=== PATIENT | female | born 1960 | race Caucasian/White ===

== ENCOUNTER 2023-03-04 12:46 | Inpatient (IN) | payer OTHER ==
[~2023-03-04] VITALS: Ht 157.5 cm; Wt 68.9 kg
[2023-03-04] MEDS ORDERED: SODIUM CHLORIDE 0.9% 1000ML 1,000 ML IV SCH (13:15)
[2023-03-04 13:49] LABS: BASOPHILS % 0.2 % (0.0-1.0); EOSINOPHILS # (AUTO) 0.1 (0.0-0.4); EOSINOPHILS % 1.8 % (0.0-6.0); HEMATOCRIT 32.8 % (34.2-44.1); LYMPHOCYTES # (AUTO) 0.7 (1.0-3.2); LYMPHOCYTES % 12.8 % (18.0-39.1); MEAN CORPUSCULAR HEMOGLOBIN 27.7 pg (28-32); MEAN CORPUSCULAR HGB CONC 33.5 g/dL (31-35); MEAN CORPUSCULAR VOLUME 82.6 fL (81-99); MONOCYTES # (AUTO) 0.2 (0.2-0.8); MONOCYTES % 3.8 % (4.4-11.3); NEUTROPHILS # (AUTO) 4.5 (2.1-6.9); NEUTROPHILS % 80.9 % (38.7-80.0); PLATELET COUNT 359 x10e3/uL (140-360); RED BLOOD COUNT 3.97 x10e6/uL (3.6-5.1); RED CELL DISTRIBUTION WIDTH 14.1 % (11.7-14.4)
[2023-03-04 14:06] LABS: ALANINE AMINOTRANSFERASE 10 IU/L (0-55); ALBUMIN 2.3 g/dL (3.5-5.0); ALBUMIN/GLOBULIN RATIO 0.5 (0.8-2.0); ALKALINE PHOSPHATASE 55 IU/L (40-150); ANION GAP 16.9 mmol/L (8-16); BLOOD UREA NITROGEN 25 mg/dL (7-26); BUN/CREATININE RATIO 35 (6-25); CALCIUM 9.2 mg/dL (8.4-10.2); CARBON DIOXIDE 28 mmol/L (22-29); CHLORIDE 94 mmol/L (98-107); CREATINE KINASE 36 IU/L (29-168); CREATININE, SERUM 0.72 mg/dL (0.57-1.11); GLUCOSE 213 mg/dL (74-118); LIPASE 67 U/L (8-78); SODIUM 136 mmol/L (136-145)
[2023-03-04 14:08] LABS: POTASSIUM 2.9 mmol/L (3.5-5.1)
[2023-03-04 14:15] LABS: B-TYPE NATRIURETIC PEPTIDE2 246.4 pg/mL (0-100)
[2023-03-04] MEDS ORDERED: IOPAMIDOL 610MG/1ML 300 MG/ML VIAL IV ONE (14:21)
[2023-03-04] MEDS ORDERED: POTASSIUM CHLORIDE 20MEQ/100ML 100 ML IV ONE (14:30)
[2023-03-04] MEDS ORDERED: CHLORTHALIDONE25 MG (16:28)
[2023-03-04] MEDS ORDERED: LISINOPRIL40 MG (16:28)
[2023-03-04] MEDS ORDERED: ATORVASTATIN CA20 MG (16:28)
[2023-03-04] MEDS ORDERED: METFORMIN HCL1000 MG (16:28)
[2023-03-04] MEDS ORDERED: GLIMEPIRIDE4 MG (16:28)
[2023-03-04] MEDS ORDERED: POTASSIUM CHLORIDE 20 MEQ TAB CR PO STA (16:28)
[2023-03-04] MEDS ORDERED: JANUVIA50 MG (16:28)
[2023-03-04] MEDS ORDERED: PROMETHAZINE HC25 M1 (16:28)
[2023-03-04] MEDS ORDERED: CARAFATE1 GM/10 ML (16:28)
[2023-03-04] MEDS: SODIUM CHLORIDE 0.9% 1000ML 1,000 ML IV SCH ×2 (16:30→22:43)
[2023-03-04 16:54] VITALS: PULSE 91; RESP 25; O2SAT 96
[2023-03-04] MEDS ORDERED: DEXTROSE 50% SYRINGE 50 ML IV PRN (18:30)
[2023-03-04 20:32] VITALS: PULSE 91; RESP 17; O2SAT 98
[2023-03-04] MEDS: INSULIN GLARGINE 100 UNITS/ML VIAL SQ SCH (21:00)
[2023-03-04] MEDS ORDERED: INSULIN LISPRO 100 UNIT/1 ML 3ML VIAL SQ SCH (21:00)
[2023-03-04] MEDS: INSULIN LISPRO 100 UNIT/1 ML 3ML VIAL SQ SCH (21:00)
[2023-03-04 22:10] VITALS: BP 121/70; PULSE 95; RESP 19; TEMP 98.4; O2SAT 98
[2023-03-04 22:31] VITALS: BP 121/70; PULSE 95; RESP 19; TEMP 98.4; O2SAT 98
[2023-03-05] VITALS (8 sets, daily range): BP systolic 114–133; BP diastolic 69–79; PULSE 85–105; RESP 15–22; TEMP 97.5–99.4; O2SAT 94–97
[2023-03-05] MEDS ORDERED: METOCLOPRAMIDE HCL 10 MG/2ML VIAL IV STA (00:24)
[2023-03-05 00:25] LABS: CREATINE KINASE MB 0.5 ng/mL (0-5.0)
[2023-03-05] MEDS: Morphine 2mg Syringe 2 MG/ML SYR IV PRN ×3 (00:50→21:53)
[2023-03-05 01:05] LABS: % IRON SATURATION 22 % (15-50); IRON 27 ug/dL (50-170); TOTAL IRON BINDING CAPACITY 125 ug/dL (261-478); TRANSFERRIN 89 mg/dL (180-382)
[2023-03-05] MEDS: METOCLOPRAMIDE HCL 10 MG/2ML VIAL IV SCH ×4 (05:30→23:26)
[2023-03-05 06:37] LABS: BASOPHILS % 0.4 % (0.0-1.0); EOSINOPHILS # (AUTO) 0.1 (0.0-0.4); EOSINOPHILS % 1.6 % (0.0-6.0); HEMATOCRIT 31.1 % (34.2-44.1); HEMOGLOBIN 9.9 g/dL (12.0-16.0); LYMPHOCYTES # (AUTO) 0.9 (1.0-3.2); LYMPHOCYTES % 16.2 % (18.0-39.1); MEAN CORPUSCULAR HEMOGLOBIN 27.7 pg (28-32); MEAN CORPUSCULAR HGB CONC 31.8 g/dL (31-35); MEAN CORPUSCULAR VOLUME 86.9 fL (81-99); MONOCYTES # (AUTO) 0.2 (0.2-0.8); NEUTROPHILS # (AUTO) 4.3 (2.1-6.9); NEUTROPHILS % 77.1 % (38.7-80.0); PLATELET COUNT 320 x10e3/uL (140-360); RED BLOOD COUNT 3.58 x10e6/uL (3.6-5.1); RED CELL DISTRIBUTION WIDTH 14.3 % (11.7-14.4)
[2023-03-05 07:10] LABS: ALBUMIN 1.9 g/dL (3.5-5.0); ALBUMIN/GLOBULIN RATIO 0.5 (0.8-2.0); ANION GAP 13.9 mmol/L (8-16); CALCIUM 8.1 mg/dL (8.4-10.2); CREATININE, SERUM 0.61 mg/dL (0.57-1.11)
[2023-03-05 07:14] LABS: POTASSIUM 2.9 mmol/L (3.5-5.1)
[2023-03-05] MEDS: INSULIN LISPRO 100 UNIT/1 ML 3ML VIAL SQ SCH ×4 (07:30→20:45)
[2023-03-05 08:03] LABS: CHOL/HDL RATIO 6.2 (3.0-3.6)
[2023-03-05 08:06] LABS: CREATINE KINASE MB 0.4 ng/mL (0-5.0)
[2023-03-05] MEDS ORDERED: POTASSIUM CHLORIDE 10MEQ EA PO ONE (09:00)
[2023-03-05] MEDS: POTASSIUM CHLORIDE 20MEQ/100ML 100 ML IV SCH ×2 (09:10→14:32)
[2023-03-05] MEDS: ATORVASTATIN 20 MG TAB PO SCH (09:11)
[2023-03-05] MEDS: SUCRALFATE 1 GM/10 ML SUSP PO SCH ×2 (09:11→16:35)
[2023-03-05] MEDS: SODIUM CHLORIDE 0.9% 1000ML 1,000 ML IV SCH ×4 (09:11→23:56)
[2023-03-05 15:51] LABS: CREATINE KINASE MB 0.3 ng/mL (0-5.0)
[2023-03-05] MEDS: INSULIN GLARGINE 100 UNITS/ML VIAL SQ SCH (20:44)
[2023-03-05] MEDS ORDERED: CYANOCOBALAMIN INJ 1,000 MCG/ML VIAL IM ONE (22:00)
[2023-03-05] MEDS ORDERED: METRONIDAZOLE 750MG/NS 150ML 150 ML IV STA (22:12)
[2023-03-06] VITALS (9 sets, daily range): BP systolic 121–138; BP diastolic 64–79; PULSE 96–103; RESP 18–20; TEMP 97.3–100.8; O2SAT 93–100
[2023-03-06] MEDS: METRONIDAZOLE 500MG/NS 100ML 100 ML IV SCH ×3 (06:25→18:31)
[2023-03-06] MEDS: METOCLOPRAMIDE HCL 10 MG/2ML VIAL IV SCH ×3 (06:25→18:31)
[2023-03-06] MEDS: INSULIN LISPRO 100 UNIT/1 ML 3ML VIAL SQ SCH ×4 (07:30→20:44)
[2023-03-06] MEDS: SUCRALFATE 1 GM/10 ML SUSP PO SCH ×2 (07:30→18:31)
[2023-03-06] MEDS: ATORVASTATIN 20 MG TAB PO SCH (09:00)
[2023-03-06] MEDS: SODIUM CHLORIDE 0.9% 1000ML 1,000 ML IV SCH ×2 (10:28→18:31)
[2023-03-06] MEDS: CYANOCOBALAMIN INJ 1,000 MCG/ML VIAL IM SCH (10:29)
[2023-03-06] MEDS: IRON SUCROSE 100 MG in SODIUM CHLORIDE 0.9% 100 ML IV SCH (10:33)
[2023-03-06] MEDS: Morphine 2mg Syringe 2 MG/ML SYR IV PRN (19:31)
[2023-03-06] MEDS: INSULIN GLARGINE 100 UNITS/ML VIAL SQ SCH (20:44)
[2023-03-07] VITALS (8 sets, daily range): BP systolic 117–140; BP diastolic 70–81; PULSE 70–112; RESP 18–20; TEMP 98–100.7; O2SAT 93–100
[2023-03-07] MEDS: METRONIDAZOLE 500MG/NS 100ML 100 ML IV SCH ×5 (00:08→23:24)
[2023-03-07] MEDS: SODIUM CHLORIDE 0.9% 1000ML 1,000 ML IV SCH ×2 (00:09→09:01)
[2023-03-07] MEDS: METOCLOPRAMIDE HCL 10 MG/2ML VIAL IV SCH ×5 (00:09→23:24)
[2023-03-07 06:13] LABS: BASOPHILS % 0.2 % (0.0-1.0); EOSINOPHILS % 0.4 % (0.0-6.0); HEMOGLOBIN 9.4 g/dL (12.0-16.0); LYMPHOCYTES # (AUTO) 0.9 (1.0-3.2); LYMPHOCYTES % 11.3 % (18.0-39.1); MEAN CORPUSCULAR HEMOGLOBIN 27.6 pg (28-32); MEAN CORPUSCULAR HGB CONC 32.4 g/dL (31-35); MONOCYTES # (AUTO) 0.3 (0.2-0.8); NEUTROPHILS % 83.1 % (38.7-80.0); PLATELET COUNT 324 x10e3/uL (140-360); RED BLOOD COUNT 3.41 x10e6/uL (3.6-5.1); RED CELL DISTRIBUTION WIDTH 14.8 % (11.7-14.4)
[2023-03-07 06:46] LABS: ALBUMIN 1.8 g/dL (3.5-5.0); ALBUMIN/GLOBULIN RATIO 0.4 (0.8-2.0); ANION GAP 17.6 mmol/L (8-16); CALCIUM 7.3 mg/dL (8.4-10.2); CREATININE, SERUM 0.55 mg/dL (0.57-1.11)
[2023-03-07 07:01] LABS: POTASSIUM 2.6 mmol/L (3.5-5.1)
[2023-03-07 07:15] LABS: LIPASE 26 U/L (8-78)
[2023-03-07] MEDS ORDERED: POTASSIUM CHLORIDE 20 MEQ TAB CR PO STA (07:28)
[2023-03-07] MEDS ORDERED: MAGNESIUM SULFATE 2GM/50ML 50 ML IV STA (07:28)
[2023-03-07] MEDS: INSULIN LISPRO 100 UNIT/1 ML 3ML VIAL SQ SCH ×4 (07:30→20:11)
[2023-03-07] MEDS: CYANOCOBALAMIN INJ 1,000 MCG/ML VIAL IM SCH (09:00)
[2023-03-07] MEDS: SUCRALFATE 1 GM/10 ML SUSP PO SCH ×2 (09:00→16:31)
[2023-03-07] MEDS: ATORVASTATIN 20 MG TAB PO SCH (09:01)
[2023-03-07] MEDS: IRON SUCROSE 100 MG in SODIUM CHLORIDE 0.9% 100 ML IV SCH (09:02)
[2023-03-07] MEDS ORDERED: MAGNESIUM SULFATE 2GM/50ML 50 ML IV ONE (11:30)
[2023-03-07] MEDS ORDERED: POTASSIUM CHLORIDE 20 MEQ TAB CR PO ONE ×3 (11:30→20:00)
[2023-03-07 11:53] LABS: AMYLASE 25 U/L (25-125)
[2023-03-07 15:07] LABS: ANION GAP 19.8 mmol/L (8-16); CALCIUM 7.5 mg/dL (8.4-10.2); CREATININE, SERUM 0.57 mg/dL (0.57-1.11)
[2023-03-07 15:12] LABS: POTASSIUM 2.8 mmol/L (3.5-5.1)
[2023-03-07] MEDS ORDERED: FUROSEMIDE INJ 10 MG/ML 2 ML VIAL IV ONE (16:15)
[2023-03-07] MEDS ORDERED: ONDANSETRON HCL INJ 2MG/ML 2ML 2 MG/ML VIAL IV PRN (17:15)
[2023-03-07] MEDS ORDERED: IOPAMIDOL 370 MG/ML 100 ML INFUS..BTL INJ ONE (17:16)
[2023-03-07] MEDS: INSULIN GLARGINE 100 UNITS/ML VIAL SQ SCH (20:13)
[2023-03-08] VITALS (9 sets, daily range): BP systolic 118–133; BP diastolic 71–83; PULSE 88–109; RESP 17–21; TEMP 97–99; O2SAT 96–99
[2023-03-08] MEDS: METRONIDAZOLE 500MG/NS 100ML 100 ML IV SCH ×3 (04:25→17:47)
[2023-03-08] MEDS: METOCLOPRAMIDE HCL 10 MG/2ML VIAL IV SCH ×3 (04:25→17:47)
[2023-03-08 05:54] LABS: BASOPHILS % 0.4 % (0.0-1.0); EOSINOPHILS # (AUTO) 0.1 (0.0-0.4); EOSINOPHILS % 0.9 % (0.0-6.0); HEMATOCRIT 28.2 % (34.2-44.1); HEMOGLOBIN 9.2 g/dL (12.0-16.0); LYMPHOCYTES # (AUTO) 0.9 (1.0-3.2); LYMPHOCYTES % 10.7 % (18.0-39.1); MEAN CORPUSCULAR HEMOGLOBIN 27.1 pg (28-32); MEAN CORPUSCULAR HGB CONC 32.6 g/dL (31-35); MEAN CORPUSCULAR VOLUME 82.9 fL (81-99); MONOCYTES # (AUTO) 0.4 (0.2-0.8); MONOCYTES % 4.5 % (4.4-11.3); NEUTROPHILS % 82.7 % (38.7-80.0); PLATELET COUNT 351 x10e3/uL (140-360); RED CELL DISTRIBUTION WIDTH 14.9 % (11.7-14.4)
[2023-03-08 06:28] LABS: ANION GAP 15.4 mmol/L (8-16); CALCIUM 7.5 mg/dL (8.4-10.2); CREATININE, SERUM 0.52 mg/dL (0.57-1.11); MAGNESIUM 1.5 MG/DL (1.3-2.1); PHOSPHORUS 1.8 MG/DL (2.3-4.7); POTASSIUM 3.4 mmol/L (3.5-5.1)
[2023-03-08] MEDS: INSULIN LISPRO 100 UNIT/1 ML 3ML VIAL SQ SCH ×4 (07:30→20:59)
[2023-03-08] MEDS: SUCRALFATE 1 GM/10 ML SUSP PO SCH ×2 (09:00→16:34)
[2023-03-08] MEDS: ATORVASTATIN 20 MG TAB PO SCH (09:50)
[2023-03-08] MEDS: IRON SUCROSE 100 MG in SODIUM CHLORIDE 0.9% 100 ML IV SCH (09:52)
[2023-03-08] MEDS: CYANOCOBALAMIN INJ 1,000 MCG/ML VIAL IM SCH (09:52)
[2023-03-08] MEDS: INSULIN GLARGINE 100 UNITS/ML VIAL SQ SCH (21:00)
[2023-03-09] VITALS (8 sets, daily range): BP systolic 119–133; BP diastolic 64–74; PULSE 74–108; RESP 16–20; TEMP 97.5–98.7; O2SAT 95–100
[2023-03-09] MEDS: METOCLOPRAMIDE HCL 10 MG/2ML VIAL IV SCH ×4 (00:45→18:45)
[2023-03-09] MEDS: METRONIDAZOLE 500MG/NS 100ML 100 ML IV SCH ×4 (00:45→18:45)
[2023-03-09 05:52] LABS: BASOPHILS % 0.4 % (0.0-1.0); EOSINOPHILS # (AUTO) 0.1 (0.0-0.4); EOSINOPHILS % 1.8 % (0.0-6.0); HEMATOCRIT 26.8 % (34.2-44.1); HEMOGLOBIN 8.6 g/dL (12.0-16.0); LYMPHOCYTES % 14.1 % (18.0-39.1); MEAN CORPUSCULAR HGB CONC 32.1 g/dL (31-35); MEAN CORPUSCULAR VOLUME 84.3 fL (81-99); MONOCYTES # (AUTO) 0.3 (0.2-0.8); MONOCYTES % 4.1 % (4.4-11.3); NEUTROPHILS # (AUTO) 5.3 (2.1-6.9); NEUTROPHILS % 78.9 % (38.7-80.0); PLATELET COUNT 341 x10e3/uL (140-360); RED BLOOD COUNT 3.18 x10e6/uL (3.6-5.1); RED CELL DISTRIBUTION WIDTH 15.1 % (11.7-14.4)
[2023-03-09 06:26] LABS: ALBUMIN 1.6 g/dL (3.5-5.0); ALBUMIN/GLOBULIN RATIO 0.4 (0.8-2.0); CALCIUM 7.4 mg/dL (8.4-10.2); CREATININE, SERUM 0.5 mg/dL (0.57-1.11)
[2023-03-09] MEDS: INSULIN LISPRO 100 UNIT/1 ML 3ML VIAL SQ SCH ×4 (07:30→21:00)
[2023-03-09] MEDS: SUCRALFATE 1 GM/10 ML SUSP PO SCH ×2 (08:30→16:32)
[2023-03-09] MEDS ORDERED: MUPIROCIN 2% OINT 22 GM TUBE TOP SCH (09:00)
[2023-03-09] MEDS: CYANOCOBALAMIN INJ 1,000 MCG/ML VIAL IM SCH (09:38)
[2023-03-09] MEDS: ATORVASTATIN 20 MG TAB PO SCH (09:39)
[2023-03-09] MEDS: IRON SUCROSE 100 MG in SODIUM CHLORIDE 0.9% 100 ML IV SCH (09:39)
[2023-03-09] MEDS: MUPIROCIN 2% OINT 22 GM TUBE TOP SCH (13:24)
[2023-03-09] MEDS ORDERED: POTASSIUM CHLORIDE 20 MEQ TAB CR PO ONE (19:50)
[2023-03-09] MEDS: INSULIN GLARGINE 100 UNITS/ML VIAL SQ SCH (21:00)
[2023-03-10] VITALS (8 sets, daily range): BP systolic 117–132; BP diastolic 59–75; PULSE 98–103; RESP 16–20; TEMP 98–98.5; O2SAT 94–97
[2023-03-10] MEDS: METRONIDAZOLE 500MG/NS 100ML 100 ML IV SCH ×4 (00:11→18:27)
[2023-03-10] MEDS: METOCLOPRAMIDE HCL 10 MG/2ML VIAL IV SCH ×4 (00:11→18:27)
[2023-03-10 06:06] LABS: BASOPHILS % 0.3 % (0.0-1.0); EOSINOPHILS # (AUTO) 0.1 (0.0-0.4); EOSINOPHILS % 2.1 % (0.0-6.0); HEMATOCRIT 25.7 % (34.2-44.1); HEMOGLOBIN 8.4 g/dL (12.0-16.0); LYMPHOCYTES % 16.1 % (18.0-39.1); MEAN CORPUSCULAR HEMOGLOBIN 27.2 pg (28-32); MEAN CORPUSCULAR HGB CONC 32.7 g/dL (31-35); MEAN CORPUSCULAR VOLUME 83.2 fL (81-99); MONOCYTES # (AUTO) 0.2 (0.2-0.8); MONOCYTES % 3.6 % (4.4-11.3); NEUTROPHILS # (AUTO) 4.7 (2.1-6.9); NEUTROPHILS % 76.8 % (38.7-80.0); PLATELET COUNT 357 x10e3/uL (140-360); RED BLOOD COUNT 3.09 x10e6/uL (3.6-5.1); RED CELL DISTRIBUTION WIDTH 15.1 % (11.7-14.4)
[2023-03-10 06:53] LABS: ANION GAP 13.8 mmol/L (8-16); CALCIUM 7.1 mg/dL (8.4-10.2); CREATININE, SERUM 0.46 mg/dL (0.57-1.11)
[2023-03-10 07:09] LABS: POTASSIUM 2.8 mmol/L (3.5-5.1)
[2023-03-10] MEDS: INSULIN LISPRO 100 UNIT/1 ML 3ML VIAL SQ SCH ×4 (07:30→21:00)
[2023-03-10 08:04] LABS: BAND NEUTROPHILS % (MANUAL) 2 %; EOSINOPHILS % (MANUAL) 4 % (0-7); LYMPHOCYTES % (MANUAL) 13 % (19-48); MONOCYTES % (MANUAL) 2 % (3.4-9.0); NEUTROPHILS % (MANUAL) 79 % (40-74); PLATELET ESTIMATE ADEQUATE; PLATELET MORPHOLOGY COMMENT NORMAL; RBC MORPHOLOGY COMMENT NORMAL
[2023-03-10] MEDS ORDERED: POTASSIUM CHLORIDE 10MEQ/100ML 100 ML IV ONE ×2 (08:15→12:00)
[2023-03-10] MEDS ORDERED: POTASSIUM CHLORIDE 10MEQ/100ML 100 ML ONE (08:58)
[2023-03-10] MEDS: ATORVASTATIN 20 MG TAB PO SCH (09:42)
[2023-03-10] MEDS: CYANOCOBALAMIN INJ 1,000 MCG/ML VIAL IM SCH (09:43)
[2023-03-10] MEDS: IRON SUCROSE 100 MG in SODIUM CHLORIDE 0.9% 100 ML IV SCH (09:50)
[2023-03-10] MEDS: MAGNESIUM SULFATE 2GM/50ML 50 ML IV SCH ×2 (09:51→18:25)
[2023-03-10] MEDS: MUPIROCIN 2% OINT 22 GM TUBE TOP SCH (09:52)
[2023-03-10] MEDS: SUCRALFATE 1 GM/10 ML SUSP PO SCH ×2 (09:55→18:26)
[2023-03-10] MEDS: POTASSIUM CHLORIDE 20MEQ/100ML 100 ML IV SCH ×2 (09:56→13:18)
[2023-03-10] MEDS: INSULIN GLARGINE 100 UNITS/ML VIAL SQ SCH (21:00)
[2023-03-11] VITALS (7 sets, daily range): BP systolic 108–135; BP diastolic 68–79; PULSE 84–107; RESP 15–18; TEMP 98.2–99; O2SAT 95–97
[2023-03-11] MEDS: METOCLOPRAMIDE HCL 10 MG/2ML VIAL IV SCH ×3 (00:15→13:00)
[2023-03-11] MEDS: METRONIDAZOLE 500MG/NS 100ML 100 ML IV SCH ×3 (00:15→13:00)
[2023-03-11 07:21] LABS: ALANINE AMINOTRANSFERASE 6 IU/L (0-55); ALBUMIN 1.7 g/dL (3.5-5.0); ALBUMIN/GLOBULIN RATIO 0.5 (0.8-2.0); ALKALINE PHOSPHATASE 56 IU/L (40-150); ANION GAP 13.7 mmol/L (8-16); BLOOD UREA NITROGEN < 5 mg/dL (7-26); CARBON DIOXIDE 22 mmol/L (22-29); CHLORIDE 109 mmol/L (98-107); CREATININE, SERUM 0.46 mg/dL (0.57-1.11); GLUCOSE 99 mg/dL (74-118); MAGNESIUM 1.4 MG/DL (1.3-2.1); SODIUM 142 mmol/L (136-145)
[2023-03-11 07:27] LABS: BUN/CREATININE RATIO 11 (6-25)
[2023-03-11 07:28] LABS: CALCIUM 6.9 mg/dL (8.4-10.2); POTASSIUM 2.7 mmol/L (3.5-5.1)
[2023-03-11] MEDS: INSULIN LISPRO 100 UNIT/1 ML 3ML VIAL SQ SCH ×2 (07:30→11:30)
[2023-03-11] MEDS ORDERED: POTASSIUM CHLORIDE 20 MEQ TAB CR PO ONE (09:00)
[2023-03-11] MEDS: CYANOCOBALAMIN INJ 1,000 MCG/ML VIAL IM SCH (09:45)
[2023-03-11] MEDS: SUCRALFATE 1 GM/10 ML SUSP PO SCH (09:46)
[2023-03-11] MEDS: POTASSIUM CHLORIDE 20MEQ/100ML 100 ML IV SCH ×2 (09:46→12:58)
[2023-03-11] MEDS: ATORVASTATIN 20 MG TAB PO SCH (09:46)
[2023-03-11] MEDS: MUPIROCIN 2% OINT 22 GM TUBE TOP SCH (09:48)
[2023-03-11] MEDS ORDERED: ZYVOX600 MG PO (15:25)
[2023-03-11] MEDS ORDERED: POTASSIUM CHLO20 ME1 PO (15:26)
== END 2023-03-11 16:31 | disposition home or self-care (01) | DRG 392 ==
LOC: ER 12:52 → ERHOLD 16:32 → MED/SURG2 21:08 → OBSVTOIN 03-06 09:32
PROVIDERS: ADMIT Family Medicine; ATTEND Family Medicine
DX: A09 Infectious gastroenteritis and colitis, unspecified (principal); E44.0 Moderate protein-calorie malnutrition; I10 Essential (primary) hypertension; K21.9 Gastro-esophageal reflux disease without esophagitis; E83.42 Hypomagnesemia; L89.322 Pressure ulcer of left buttock, stage 2; Z68.27 Body mass index [BMI] 27.0-27.9, adult; E11.65 Type 2 diabetes mellitus with hyperglycemia; D50.8 Other iron deficiency anemias; E78.5 Hyperlipidemia, unspecified; R14.0 Abdominal distension (gaseous); R53.81 Other malaise
CPT/HCPCS: 0223U; 36415; 71045; 71046; 71260; 74177; 78226; 80048; 80053; 80061; 82150; 82550; 82553; 82607; 82746; 82948; 83036; 83540; 83605; 83630; 83690; 83735; 83880; 83993; 84100; 84466; 84484; 85025; 85045; 87040; 87045; 87071; 87177; 87186; 87205; 87324; 87449; 93005; 94799; 99252; 99284; A9537; G0378; J1756; J1815; J1940; J2270; J2765; J3420; J3475; J3480; J7030; J7050; Q9967

== ENCOUNTER 2023-03-18 11:53 | Inpatient (IN) | payer OTHER ==
[~2023-03-18] VITALS: Ht 157.5 cm; Wt 67.4 kg
[2023-03-18] VITALS (27 sets, daily range): BP systolic 77–111; BP diastolic 57–84
[~2023-03-18 11:53] MED LIST: ATORVASTATIN CA20 MG; CARAFATE1 GM/10 ML; CHLORTHALIDONE25 MG; GLIMEPIRIDE4 MG; JANUVIA50 MG; LISINOPRIL40 MG; METFORMIN HCL1000 MG; POTASSIUM CHLO20 ME1 PO; PROMETHAZINE HC25 M1; ZYVOX600 MG PO
[2023-03-18] MEDS ORDERED: SODIUM CHLORIDE 0.9% 1000ML 1,000 ML ONE (12:04)
[2023-03-18] MEDS ORDERED: DILTIAZEM HCL VIAL 5 ML ONE ×2 (12:08→12:26)
[2023-03-18] MEDS ORDERED: DILTIAZEM HCL 5 MG/ML 5 ML VIAL IV STA (12:21)
[2023-03-18 12:28] LABS: BASOPHILS % 0.4 % (0.0-1.0); EOSINOPHILS # (AUTO) 0.1 (0.0-0.4); EOSINOPHILS % 0.9 % (0.0-6.0); HEMOGLOBIN 10.7 g/dL (12.0-16.0); LYMPHOCYTES # (AUTO) 1.1 (1.0-3.2); LYMPHOCYTES % 15.6 % (18.0-39.1); MEAN CORPUSCULAR HEMOGLOBIN 27.2 pg (28-32); MEAN CORPUSCULAR HGB CONC 31.5 g/dL (31-35); MEAN CORPUSCULAR VOLUME 86.3 fL (81-99); MONOCYTES # (AUTO) 0.2 (0.2-0.8); MONOCYTES % 3.3 % (4.4-11.3); NEUTROPHILS # (AUTO) 5.5 (2.1-6.9); NEUTROPHILS % 79.1 % (38.7-80.0); PLATELET COUNT 354 x10e3/uL (140-360); RED BLOOD COUNT 3.94 x10e6/uL (3.6-5.1); RED CELL DISTRIBUTION WIDTH 15.5 % (11.7-14.4)
[2023-03-18] MEDS ORDERED: SODIUM CHLORIDE 0.9% 100 ML IV ONE (12:30)
[2023-03-18] MEDS ORDERED: DILTIAZEM HCL 5 MG/ML 5 ML VIAL IV ONE (12:30)
[2023-03-18] MEDS ORDERED: METOPROLOL TARTRATE INJ 1 MG/ML VIAL ONE (12:31)
[2023-03-18 12:39] LABS: ALBUMIN 2.2 g/dL (3.5-5.0); ALBUMIN/GLOBULIN RATIO 0.5 (0.8-2.0); ANION GAP 20.4 mmol/L (8-16); CALCIUM 8.7 mg/dL (8.4-10.2); CREATININE, SERUM 0.68 mg/dL (0.57-1.11); POTASSIUM 4.4 mmol/L (3.5-5.1)
[2023-03-18] MEDS ORDERED: SODIUM CHLORIDE 0.9% 1000ML 1,000 ML IV SCH (12:45)
[2023-03-18] MEDS: METOPROLOL TARTRATE INJ 1 MG/ML VIAL IV PRN ×2 (13:06→13:07)
[2023-03-18] MEDS: AMIODARONE 900MG 500 ML IV SCH ×3 (14:15→15:07)
[2023-03-18] MEDS ORDERED: DEXTROSE 50% SYRINGE 50 ML IV PRN (16:00)
[2023-03-18] MEDS ORDERED: MAGNESIUM SULFATE 2GM/50ML 50 ML IV ONE (17:00)
[2023-03-18] MEDS: INSULIN REGULAR, HUMAN 100 UNIT/1 ML SQ SCH ×2 (17:49→21:00)
[2023-03-18] MEDS: MAGNESIUM SULFATE 2GM/50ML 50 ML IV SCH ×4 (17:50→23:35)
[2023-03-18] MEDS: ENOXAPARIN INJ 80 MG/0.8 ML SYR SC SCH (19:16)
[2023-03-18] MEDS ORDERED: DIGOXIN INJ 0.25 MG/ML 2 ML AMP IV ONE (20:30)
[2023-03-18] MEDS ORDERED: VASOPRESSIN 60 UNIT in DEXTROSE 5% 50ML 50 ML IV SCH (20:30)
[2023-03-18] MEDS ORDERED: DIGOXIN INJ 0.25 MG/ML 2 ML AMP ONE (20:35)
[2023-03-18] MEDS ORDERED: ZOLPIDEM TARTRATE 5 MG TAB PO PRN (20:45)
[2023-03-18] MEDS ORDERED: ATORVASTATIN 20 MG TAB PO SCH (21:00)
[2023-03-18] MEDS ORDERED: SODIUM CHLORIDE 0.9% 250ML 250 ML ONE (21:05)
[2023-03-18] MEDS ORDERED: METOPROLOL TARTRATE INJ 1 MG/ML VIAL IV ONE (22:45)
[2023-03-18] MEDS ORDERED: SODIUM CHLORIDE 0.9% 1000ML 250 ML IV ONE (22:45)
[2023-03-18] MEDS ORDERED: SODIUM CHLORIDE 0.9% 1000ML 1,000 ML IV ONE (22:45)
[2023-03-19] VITALS (82 sets, daily range): BP systolic 89–135; BP diastolic 51–103
[2023-03-19] MEDS: ENOXAPARIN INJ 80 MG/0.8 ML SYR SC SCH ×2 (06:18→18:04)
[2023-03-19] MEDS: AMIODARONE 900MG 500 ML IV SCH (06:18)
[2023-03-19 06:56] LABS: BASOPHILS % 0.4 % (0.0-1.0); EOSINOPHILS # (AUTO) 0.1 (0.0-0.4); EOSINOPHILS % 1.8 % (0.0-6.0); HEMOGLOBIN 8.9 g/dL (12.0-16.0); LYMPHOCYTES # (AUTO) 1.1 (1.0-3.2); LYMPHOCYTES % 22.1 % (18.0-39.1); MEAN CORPUSCULAR HEMOGLOBIN 27.1 pg (28-32); MEAN CORPUSCULAR HGB CONC 31.8 g/dL (31-35); MEAN CORPUSCULAR VOLUME 85.4 fL (81-99); MONOCYTES # (AUTO) 0.2 (0.2-0.8); MONOCYTES % 3.9 % (4.4-11.3); NEUTROPHILS # (AUTO) 3.5 (2.1-6.9); PLATELET COUNT 284 x10e3/uL (140-360); RED BLOOD COUNT 3.28 x10e6/uL (3.6-5.1)
[2023-03-19 07:01] LABS: ANION GAP 13.4 mmol/L (8-16); CALCIUM 7.8 mg/dL (8.4-10.2); CREATININE, SERUM 0.48 mg/dL (0.57-1.11); POTASSIUM 3.4 mmol/L (3.5-5.1)
[2023-03-19] MEDS: INSULIN REGULAR, HUMAN 100 UNIT/1 ML SQ SCH ×4 (07:30→20:37)
[2023-03-19] MEDS: POTASSIUM CHLORIDE 20MEQ/100ML 100 ML IV SCH ×2 (08:16→10:33)
[2023-03-19] MEDS ORDERED: LINEZOLID 600 MG TAB PO SCH (09:00)
[2023-03-19] MEDS ORDERED: CALCIUM GLUC 1 G/50 ML NACL 50 ML IV ONE (09:30)
[2023-03-19] MEDS: AMIODARONE HCL 200 MG TAB PO SCH (16:14)
[2023-03-19] MEDS: ATORVASTATIN 40 MG TAB PO SCH (21:00)
[2023-03-20] VITALS (14 sets, daily range): BP systolic 114–137; BP diastolic 62–92
[2023-03-20] MEDS: ENOXAPARIN INJ 80 MG/0.8 ML SYR SC SCH ×2 (05:26→18:02)
[2023-03-20 06:39] LABS: BASOPHILS % 0.4 % (0.0-1.0); EOSINOPHILS # (AUTO) 0.1 (0.0-0.4); EOSINOPHILS % 1.3 % (0.0-6.0); HEMATOCRIT 25.9 % (34.2-44.1); HEMOGLOBIN 8.2 g/dL (12.0-16.0); LYMPHOCYTES # (AUTO) 1.1 (1.0-3.2); LYMPHOCYTES % 21.1 % (18.0-39.1); MEAN CORPUSCULAR HEMOGLOBIN 27.2 pg (28-32); MEAN CORPUSCULAR HGB CONC 31.7 g/dL (31-35); MONOCYTES # (AUTO) 0.3 (0.2-0.8); NEUTROPHILS # (AUTO) 3.8 (2.1-6.9); NEUTROPHILS % 71.8 % (38.7-80.0); PLATELET COUNT 215 x10e3/uL (140-360); RED BLOOD COUNT 3.01 x10e6/uL (3.6-5.1); RED CELL DISTRIBUTION WIDTH 14.6 % (11.7-14.4)
[2023-03-20 07:11] LABS: ALBUMIN/GLOBULIN RATIO 0.5 (0.8-2.0); ANION GAP 12.5 mmol/L (8-16); CALCIUM 8.1 mg/dL (8.4-10.2); CREATININE, SERUM 0.47 mg/dL (0.57-1.11); MAGNESIUM 1.4 MG/DL (1.3-2.1); POTASSIUM 3.5 mmol/L (3.5-5.1)
[2023-03-20] MEDS: INSULIN REGULAR, HUMAN 100 UNIT/1 ML SQ SCH ×4 (07:30→21:00)
[2023-03-20] MEDS: MUPIROCIN 2% OINT 22 GM TUBE TOP SCH (08:23)
[2023-03-20] MEDS: AMIODARONE HCL 200 MG TAB PO SCH ×2 (08:23→18:02)
[2023-03-20] MEDS: METRONIDAZOLE 500 MG TAB PO SCH ×2 (15:49→21:34)
[2023-03-20] MEDS: ATORVASTATIN 40 MG TAB PO SCH (21:34)
[2023-03-20 22:48] LABS: % IRON SATURATION 41 % (15-50); IRON 58 ug/dL (50-170); TOTAL IRON BINDING CAPACITY 140 ug/dL (261-478); TRANSFERRIN 100 mg/dL (180-382)
[2023-03-21] VITALS (8 sets, daily range): BP systolic 122–133; BP diastolic 71–78
[2023-03-21] MEDS: ENOXAPARIN INJ 80 MG/0.8 ML SYR SC SCH ×2 (05:19→17:08)
[2023-03-21] MEDS: METRONIDAZOLE 500 MG TAB PO SCH ×3 (05:19→20:56)
[2023-03-21 05:41] LABS: BASOPHILS % 0.5 % (0.0-1.0); EOSINOPHILS # (AUTO) 0.1 (0.0-0.4); EOSINOPHILS % 0.8 % (0.0-6.0); LYMPHOCYTES # (AUTO) 1.2 (1.0-3.2); LYMPHOCYTES % 19.4 % (18.0-39.1); MEAN CORPUSCULAR HGB CONC 30.8 g/dL (31-35); MEAN CORPUSCULAR VOLUME 87.6 fL (81-99); MONOCYTES # (AUTO) 0.4 (0.2-0.8); MONOCYTES % 5.5 % (4.4-11.3); NEUTROPHILS # (AUTO) 4.7 (2.1-6.9); NEUTROPHILS % 73.2 % (38.7-80.0); PLATELET COUNT 220 x10e3/uL (140-360); RED BLOOD COUNT 2.59 x10e6/uL (3.6-5.1)
[2023-03-21 05:55] LABS: HEMATOCRIT 22.7 % (34.2-44.1)
[2023-03-21 06:01] LABS: ALBUMIN 2.1 g/dL (3.5-5.0); ALBUMIN/GLOBULIN RATIO 0.6 (0.8-2.0); ANION GAP 11.1 mmol/L (8-16); CALCIUM 8.1 mg/dL (8.4-10.2); CREATININE, SERUM 0.47 mg/dL (0.57-1.11); POTASSIUM 3.1 mmol/L (3.5-5.1)
[2023-03-21 06:04] LABS: MAGNESIUM 1.1 MG/DL (1.3-2.1)
[2023-03-21] MEDS ORDERED: MAGNESIUM SULFATE 2GM/50ML 50 ML IV ONE ×2 (07:00→11:00)
[2023-03-21] MEDS: INSULIN REGULAR, HUMAN 100 UNIT/1 ML SQ SCH ×4 (07:30→20:57)
[2023-03-21] MEDS ORDERED: SODIUM CHLORIDE 0.9% 250ML 250 ML ONE (07:39)
[2023-03-21] MEDS: AMIODARONE HCL 200 MG TAB PO SCH ×2 (09:41→17:08)
[2023-03-21] MEDS: MUPIROCIN 2% OINT 22 GM TUBE TOP SCH (09:42)
[2023-03-21] MEDS: IRON SUCROSE 100 MG in SODIUM CHLORIDE 0.9% 100 ML IV SCH (09:42)
[2023-03-21] MEDS: ATORVASTATIN 40 MG TAB PO SCH (20:56)
[2023-03-22] VITALS (7 sets, daily range): BP systolic 117–141; BP diastolic 65–95
[2023-03-22] MEDS: METRONIDAZOLE 500 MG TAB PO SCH ×3 (05:22→21:44)
[2023-03-22] MEDS: INSULIN REGULAR, HUMAN 100 UNIT/1 ML SQ SCH ×4 (07:30→21:00)
[2023-03-22] MEDS: ONDANSETRON HCL INJ 2MG/ML 2ML 2 MG/ML VIAL IV PRN (08:10)
[2023-03-22] MEDS: MUPIROCIN 2% OINT 22 GM TUBE TOP SCH (09:00)
[2023-03-22] MEDS: AMIODARONE HCL 200 MG TAB PO SCH ×2 (09:19→17:03)
[2023-03-22] MEDS: IRON SUCROSE 100 MG in SODIUM CHLORIDE 0.9% 100 ML IV SCH (09:19)
[2023-03-22 09:34] LABS: BASOPHILS % 0.5 % (0.0-1.0); EOSINOPHILS # (AUTO) 0.1 (0.0-0.4); EOSINOPHILS % 1.2 % (0.0-6.0); HEMATOCRIT 26.4 % (34.2-44.1); HEMOGLOBIN 8.5 g/dL (12.0-16.0); LYMPHOCYTES # (AUTO) 0.9 (1.0-3.2); LYMPHOCYTES % 15.7 % (18.0-39.1); MEAN CORPUSCULAR HEMOGLOBIN 27.3 pg (28-32); MEAN CORPUSCULAR HGB CONC 32.2 g/dL (31-35); MEAN CORPUSCULAR VOLUME 84.9 fL (81-99); MONOCYTES # (AUTO) 0.3 (0.2-0.8); NEUTROPHILS # (AUTO) 4.4 (2.1-6.9); NEUTROPHILS % 75.5 % (38.7-80.0); PLATELET COUNT 193 x10e3/uL (140-360); RED BLOOD COUNT 3.11 x10e6/uL (3.6-5.1); RED CELL DISTRIBUTION WIDTH 14.1 % (11.7-14.4)
[2023-03-22 11:07] LABS: CLARITY,URINE CLEAR (CLEAR); COLOR,URINE YELLOW (YELLOW); KETONES,URINE 1+ (NEGATIVE); LEUKOCYTE ESTERASE ,URINE TRACE (NEGATIVE); NITRITE,URINE NEGATIVE (NEGATIVE); PROTEIN,URINE DIPSTICK 1+ (NEGATIVE); URINE UROBILINOGEN 0.2 mg/dL (0.2 - 1)
[2023-03-22 11:19] LABS: BACTERIA,URINE FEW /HPF; EPITHELIAL CELLS,URINE RARE /LPF; RBC,URINE 0-5 /HPF (0-5); TRANSITIONAL EPI CELLS,URINE FEW; WBC,URINE (MAN) 0-5 /HPF (0-5)
[2023-03-22] MEDS ORDERED: PROPOFOL IV EMULSION 10 MG/ML 20 ML VIAL ONE (11:25)
[2023-03-22] MEDS ORDERED: LIDOCAINE HCL 2% LOCAL INJ 5 ML SDV VIAL INJ ONE (11:25)
[2023-03-22] MEDS ORDERED: FENTANYL CITRATE/PF 100MCG/2 ML INJ ONE (12:13)
[2023-03-22] MEDS ORDERED: MAGNESIUM SULFATE 2GM/50ML 50 ML IV ONE ×2 (14:15→17:00)
[2023-03-22] MEDS: ATORVASTATIN 40 MG TAB PO SCH (21:44)
[2023-03-23 00:10] VITALS: BP 123/69
[2023-03-23 04:40] VITALS: BP 122/70
[2023-03-23] MEDS: METRONIDAZOLE 500 MG TAB PO SCH ×2 (05:34→13:37)
[2023-03-23 06:27] LABS: ALBUMIN 2.1 g/dL (3.5-5.0); ALBUMIN/GLOBULIN RATIO 0.6 (0.8-2.0); ANION GAP 11.1 mmol/L (8-16); CALCIUM 7.9 mg/dL (8.4-10.2); CREATININE, SERUM 0.47 mg/dL (0.57-1.11); MAGNESIUM 1.8 MG/DL (1.3-2.1); POTASSIUM 3.1 mmol/L (3.5-5.1)
[2023-03-23] MEDS: INSULIN REGULAR, HUMAN 100 UNIT/1 ML SQ SCH ×3 (07:30→16:30)
[2023-03-23 07:39] VITALS: BP 125/74
[2023-03-23 08:27] VITALS: BP 125/74
[2023-03-23] MEDS: AMIODARONE HCL 200 MG TAB PO SCH ×2 (09:18→16:32)
[2023-03-23] MEDS: IRON SUCROSE 100 MG in SODIUM CHLORIDE 0.9% 100 ML IV SCH (09:19)
[2023-03-23] MEDS: MUPIROCIN 2% OINT 22 GM TUBE TOP SCH (09:19)
[2023-03-23 12:18] VITALS: BP 120/71
[2023-03-23] MEDS: ONDANSETRON HCL INJ 2MG/ML 2ML 2 MG/ML VIAL IV PRN (13:37)
[2023-03-23 16:22] VITALS: BP 120/74
[2023-03-23] MEDS ORDERED: ELIQUIS5 MG PO (19:02)
[2023-03-23] MEDS ORDERED: MAGNESIUM OXID400 MG PO (19:03)
[2023-03-23] MEDS ORDERED: POTASSIUM CHLO20 ME1 PO (19:03)
[2023-03-23] MEDS ORDERED: AMIODARONE HCL200 MG PO (19:04)
[2023-03-23] MEDS ORDERED: FEROSUL325 MG PO (19:04)
[2023-03-23] MEDS ORDERED: FLAGYL375 MG PO (19:05)
[2023-03-23] MEDS ORDERED: POTASSIUM CHLORIDE 10MEQ EA PO ONE (19:15)
[2023-03-23] MEDS ORDERED: ONDANSETRON HCL 4 MG ORAL DISINTEGRATING TAB PO PRN (19:30)
== END 2023-03-23 20:10 | disposition home or self-care (01) | DRG 309 ==
LOC: ER 12:03 → ERHOLD 13:30 → ICU 15:32 → MED/SURG 03-20 10:02
PROVIDERS: ADMIT Family Medicine; ATTEND Family Medicine
PROC: 05HY33Z Insertion of Infusion Device into Upper Vein, Percutaneous Approach (ICD-10-PCS; 2023-03-18)
PROC: 0DB78ZX Excision of Stomach, Pylorus, Via Natural or Artificial Opening Endoscopic, Diagnostic (ICD-10-PCS; principal; 2023-03-22 15:36)
PROC: 0D758ZZ Dilation of Esophagus, Via Natural or Artificial Opening Endoscopic (ICD-10-PCS; 2023-03-22 15:36)
DX: I48.92 Unspecified atrial flutter (principal); E44.0 Moderate protein-calorie malnutrition; K22.2 Esophageal obstruction; K44.9 Diaphragmatic hernia without obstruction or gangrene; K29.70 Gastritis, unspecified, without bleeding; Z20.822 Contact with and (suspected) exposure to COVID-19; K20.90 Esophagitis, unspecified without bleeding; I48.0 Paroxysmal atrial fibrillation; Z79.01 Long term (current) use of anticoagulants; E83.42 Hypomagnesemia; E87.6 Hypokalemia; Z68.27 Body mass index [BMI] 27.0-27.9, adult
CPT/HCPCS: 36415; 36569; 43239; 43450; 71045; 80048; 80053; 81001; 82270; 82607; 82746; 82948; 83540; 83735; 83880; 84466; 84484; 85025; 85045; 87324; 87449; 88305; 88342; 93005; 93306; 94799; 96372; 99252; 99285; J1160; J1650; J1756; J2001; J2405; J3475; J3480; J7030; J7050

== ENCOUNTER → 2023-04-26 | Day surgery (SDC) | payer OTHER ==
[2023-04-21 07:57] LABS: BASOPHILS % 0.4 % (0.0-1.0); EOSINOPHILS # (AUTO) 0.1 (0.0-0.4); EOSINOPHILS % 1.9 % (0.0-6.0); HEMATOCRIT 34.1 % (34.2-44.1); HEMOGLOBIN 10.7 g/dL (12.0-16.0); LYMPHOCYTES # (AUTO) 1.6 (1.0-3.2); LYMPHOCYTES % 33.4 % (18.0-39.1); MEAN CORPUSCULAR HEMOGLOBIN 26.9 pg (28-32); MEAN CORPUSCULAR HGB CONC 31.4 g/dL (31-35); MEAN CORPUSCULAR VOLUME 85.7 fL (81-99); MONOCYTES # (AUTO) 0.2 (0.2-0.8); MONOCYTES % 4.4 % (4.4-11.3); NEUTROPHILS # (AUTO) 2.9 (2.1-6.9); NEUTROPHILS % 59.5 % (38.7-80.0); PLATELET COUNT 409 x10e3/uL (140-360); RED BLOOD COUNT 3.98 x10e6/uL (3.6-5.1)
[~2023-04-26] MED LIST changes: +AMIODARONE HCL200 MG PO; +ELIQUIS5 MG PO; +FENTANYL CITRATE/PF 100MCG/2 ML INJ ONE; +FEROSUL325 MG PO; +FERROUS SULFAT325 MG PO; +FLAGYL375 MG PO; +HYOSCYAMINE SULFATE 0.5 MG/ML INJ ONE; +LACTATED RINGER'S 1,000 ML ONE; +LIDOCAINE HCL 2% LOCAL INJ 5 ML SDV VIAL INJ ONE; -LISINOPRIL40 MG; +LISINOPRIL40 MG PO; +MAGNESIUM OXID400 MG PO; +METOPROLOL SUCC25 MG PO; +MIDAZOLAM HCL 2 MG/2 ML VIAL ONE; +PANTOPRAZOLE SO40 MG PO; +PROPOFOL IV EMULSION 10 MG/ML 20 ML VIAL ONE; +SIMETHICONE 40 MG/0.6 ML BTL ONE
[2023-04-26 13:15] VITALS: BP 133/78; PULSE 76; RESP 18; O2SAT 98
[2023-04-29 16:11] LABS: ENDOMYSIAL ANTIBODIES, IGA Negative (Negative)
== END | disposition home or self-care (01) ==
LOC: OR 08:36
PROVIDERS: ATTEND Internal Medicine Gastroenterology
DX: R13.19 Other dysphagia (principal); K63.5 Polyp of colon; K29.70 Gastritis, unspecified, without bleeding; K21.9 Gastro-esophageal reflux disease without esophagitis; K44.9 Diaphragmatic hernia without obstruction or gangrene; K64.8 Other hemorrhoids; Z71.3 Dietary counseling and surveillance; D64.89 Other specified anemias; R63.4 Abnormal weight loss; E11.9 Type 2 diabetes mellitus without complications; Z71.89 Other specified counseling; I48.91 Unspecified atrial fibrillation; M06.9 Rheumatoid arthritis, unspecified; I10 Essential (primary) hypertension; Z01.812 Encounter for preprocedural laboratory examination; Z79.02 Long term (current) use of antithrombotics/antiplatelets; Z79.899 Other long term (current) drug therapy; Z79.84 Long term (current) use of oral hypoglycemic drugs
CPT/HCPCS: 36415 ×2; 43235; 43450; 45380; 82784; 82948; 83516; 85025; 86256; C9113; J1980; J2001; J2250; J2704; J3010; J7121; 45378

== ENCOUNTER 2023-09-26 16:18 | Inpatient (IN) | payer OTHER ==
[~2023-09-26] VITALS: Ht 157.5 cm; Wt 61.0 kg
[~2023-09-26 16:18] MED LIST changes: -FENTANYL CITRATE/PF 100MCG/2 ML INJ ONE; -HYOSCYAMINE SULFATE 0.5 MG/ML INJ ONE; -LACTATED RINGER'S 1,000 ML ONE; -LIDOCAINE HCL 2% LOCAL INJ 5 ML SDV VIAL INJ ONE; -MIDAZOLAM HCL 2 MG/2 ML VIAL ONE; -PROPOFOL IV EMULSION 10 MG/ML 20 ML VIAL ONE; -SIMETHICONE 40 MG/0.6 ML BTL ONE
[2023-09-26] MEDS ORDERED: ONDANSETRON HCL INJ 2MG/ML 2ML 2 MG/ML VIAL IV STA (16:46)
[2023-09-26] MEDS ORDERED: SODIUM CHLORIDE 0.9% 1000ML 1,000 ML IV ONE (17:00)
[2023-09-26 17:03] LABS: BASOPHILS % 0.6 % (0.0-1.0); EOSINOPHILS % 0.3 % (0.0-6.0); HEMOGLOBIN 6.2 g/dL (12.0-16.0); MEAN CORPUSCULAR HGB CONC 31.6 g/dL (31-35); MONOCYTES # (AUTO) 0.4 (0.2-0.8); MONOCYTES % 5.2 % (4.4-11.3); NEUTROPHILS # (AUTO) 5.2 (2.1-6.9); NEUTROPHILS % 74.8 % (38.7-80.0); RED BLOOD COUNT 2.48 x10e6/uL (3.6-5.1); WHITE BLOOD COUNT 6.88 x10e3/uL (4.8-10.8)
[2023-09-26 17:11] LABS: HEMATOCRIT 19.6 % (34.2-44.1); PLATELET COUNT 11 x10e3/uL (140-360)
[2023-09-26] MEDS ORDERED: SODIUM CHLORIDE 0.9% 250ML 250 ML IV ONE (17:15)
[2023-09-26 17:28] LABS: ALBUMIN 2.8 g/dL (3.5-5.0); ALBUMIN/GLOBULIN RATIO 0.6 (0.8-2.0); BILIRUBIN,TOTAL 4.6 mg/dL (0.2-1.2); CALCIUM 9.2 mg/dL (8.4-10.2); CREATININE, SERUM 1.08 mg/dL (0.57-1.11); TOTAL PROTEIN 7.4 g/dL (6.5-8.1)
[2023-09-26] MEDS ORDERED: IOPAMIDOL 370 MG/ML 100 ML INFUS..BTL INJ ONE (17:39)
[2023-09-26] MEDS ORDERED: ONDANSETRON HCL INJ 2MG/ML 2ML 2 MG/ML VIAL IV PRN (18:15)
[2023-09-26] MEDS ORDERED: METOCLOPRAMIDE HCL 10 MG/2ML VIAL IV ONE (18:15)
[2023-09-26 18:24] LABS: CLARITY,URINE HAZY (CLEAR); COLOR,URINE AMBER (YELLOW); INR 1.25; LEUKOCYTE ESTERASE ,URINE NEGATIVE (NEGATIVE); NITRITE,URINE NEGATIVE (NEGATIVE); PH,URINE 5.5 (5 - 7); PROTEIN,URINE DIPSTICK >=300 (NEGATIVE)
[2023-09-26 18:25] LABS: BILIRUBIN,URINE SMALL (NEGATIVE); GLUCOSE, URINE 500 (NEGATIVE); KETONES,URINE 2+ (NEGATIVE); PARTIAL THROMBOPLASTIN TIME 36.2 seconds (23.8-35.5); URINE UROBILINOGEN 0.2 mg/dL (0.2 - 1)
[2023-09-26 18:30] LABS: AMORPHOUS SEDIMENT,URINE FEW (FEW); BACTERIA,URINE FEW /HPF; EPITHELIAL CELLS,URINE FEW /LPF; RBC,URINE 21-50 /HPF (0-5)
[2023-09-26 18:36] LABS: TROPONIN I 0.289 ng/mL (0-0.300)
[2023-09-26 18:39] LABS: ABG HCO3 20 mmol/L (22-26); ABG PCO2 31 mmHg (35-45); ABG PH 7.42 (7.35-7.45); ABG PO2 83 mmHg (80-105)
[2023-09-26 18:40] LABS: ABG TCO2 21
[2023-09-26] MEDS: SODIUM CHLORIDE 0.9% 1000ML 1,000 ML IV SCH (20:06)
[2023-09-26 21:33] VITALS: BP 120/73; PULSE 107; RESP 19; TEMP 98.7; O2SAT 98
[2023-09-26 21:35] VITALS: BP 120/73; PULSE 107; RESP 19; TEMP 98.7; O2SAT 98
[2023-09-26] MEDS ORDERED: METFORMIN HCL500 MG PO (21:42)
[2023-09-26] MEDS ORDERED: GLIMEPIRIDE4 MG PO (21:42)
[2023-09-26 21:43] VITALS: BP 120/73; PULSE 107; RESP 19; TEMP 98.7; O2SAT 98
[2023-09-26] MEDS ORDERED: SODIUM CHLORIDE 0.9% 250ML 250 ML ONE (21:52)
[2023-09-26 22:18] LABS: ANISOCYTOSIS SLIGHT; HYPOCHROMASIA SLIGHT; PLATELET ESTIMATE MARKEDLY DECREASED; PLATELET MORPHOLOGY COMMENT NORMAL; POLYCHROMASIA FEW; RBC MORPHOLOGY COMMENT NORMAL
[2023-09-27] VITALS (8 sets, daily range): BP systolic 136–156; BP diastolic 75–87; PULSE 95–100; RESP 16–18; TEMP 98–98.6; O2SAT 93–100
[2023-09-27] MEDS ORDERED: METOCLOPRAMIDE HCL 10 MG/2ML VIAL IV STA (01:05)
[2023-09-27] MEDS ORDERED: SODIUM CHLORIDE 0.9% 250ML 250 ML ONE ×2 (01:26→10:26)
[2023-09-27] MEDS: SODIUM CHLORIDE 0.9% 1000ML 1,000 ML IV SCH ×4 (02:15→20:50)
[2023-09-27 02:58] LABS: % IRON SATURATION 77 % (15-50); IRON 167 ug/dL (50-170); TOTAL IRON BINDING CAPACITY 218 ug/dL (261-478); TRANSFERRIN 156 mg/dL (180-382)
[2023-09-27 03:32] LABS: FOLATE 7.8 ng/mL (7.0-15.4)
[2023-09-27 03:33] LABS: FERRITIN > 2000.00 ng/mL (4.63-204.00)
[2023-09-27] MEDS: METOCLOPRAMIDE HCL 10 MG/2ML VIAL IV SCH ×3 (05:46→17:22)
[2023-09-27 09:11] LABS: BASOPHILS % 0.5 % (0.0-1.0); EOSINOPHILS % 0.2 % (0.0-6.0); LYMPHOCYTES # (AUTO) 1.3 (1.0-3.2); LYMPHOCYTES % 14.4 % (18.0-39.1); MEAN CORPUSCULAR HEMOGLOBIN 27.5 pg (28-32); MEAN CORPUSCULAR HGB CONC 33.5 g/dL (31-35); MONOCYTES # (AUTO) 0.5 (0.2-0.8); MONOCYTES % 5.5 % (4.4-11.3); NEUTROPHILS # (AUTO) 6.6 (2.1-6.9); NEUTROPHILS % 75.4 % (38.7-80.0); RED BLOOD COUNT 2.44 x10e6/uL (3.6-5.1); RED CELL DISTRIBUTION WIDTH 18.6 % (11.7-14.4)
[2023-09-27 09:30] LABS: ALBUMIN 2.5 g/dL (3.5-5.0); ALBUMIN/GLOBULIN RATIO 0.7 (0.8-2.0); ANION GAP 16.7 mmol/L (8-16); BILIRUBIN,TOTAL 2.6 mg/dL (0.2-1.2); CALCIUM 8.4 mg/dL (8.4-10.2); CREATININE, SERUM 0.99 mg/dL (0.57-1.11); POTASSIUM 3.7 mmol/L (3.5-5.1); TOTAL PROTEIN 6.3 g/dL (6.5-8.1)
[2023-09-27 09:31] LABS: HEMOGLOBIN 6.7 g/dL (12.0-16.0); PLATELET COUNT 10 x10e3/uL (140-360)
[2023-09-27 10:59] LABS: CHOL/HDL RATIO 4.9 (3.0-3.6)
[2023-09-27] MEDS ORDERED: HEPARIN SOD (PORCINE) 1000 UNIT/ML SDV ONE (13:47)
[2023-09-27] MEDS ORDERED: DEXTROSE 50% SYRINGE 50 ML IV PRN (14:30)
[2023-09-27] MEDS: INSULIN LISPRO 100 UNIT/1 ML 3ML VIAL SQ SCH ×2 (14:44→21:35)
[2023-09-27 15:19] LABS: FREE T4 (FREE THYROXINE) 1.17 ng/dL (0.8-1.8); THYROID STIMULATING HORMONE 1.54 uIU/mL (0.350-4.940)
[2023-09-27 17:51] LABS: HEMATOCRIT 25.1 % (34.2-44.1); HEMOGLOBIN 8.6 g/dL (12.0-16.0)
[2023-09-27] MEDS ORDERED: INSULIN GLARGINE 100 UNITS/ML VIAL SQ SCH (21:00)
[2023-09-27] MEDS ORDERED: CYANOCOBALAMIN INJ 1,000 MCG/ML VIAL IM ONE (22:30)
[2023-09-28] VITALS (12 sets, daily range): BP systolic 87–157; BP diastolic 56–93; PULSE 76–113; RESP 16–20; TEMP 98–100.3; O2SAT 94–100
[2023-09-28] MEDS: METOCLOPRAMIDE HCL 10 MG/2ML VIAL IV SCH ×4 (00:17→17:39)
[2023-09-28 05:30] LABS: BASOPHILS % 0.3 % (0.0-1.0); EOSINOPHILS % 0.1 % (0.0-6.0); LYMPHOCYTES # (AUTO) 1.3 (1.0-3.2); LYMPHOCYTES % 11.6 % (18.0-39.1); MEAN CORPUSCULAR HEMOGLOBIN 27.7 pg (28-32); MEAN CORPUSCULAR VOLUME 81.4 fL (81-99); MONOCYTES # (AUTO) 0.6 (0.2-0.8); NEUTROPHILS # (AUTO) 8.8 (2.1-6.9); NEUTROPHILS % 78.3 % (38.7-80.0); RED BLOOD COUNT 2.53 x10e6/uL (3.6-5.1); WHITE BLOOD COUNT 11.24 x10e3/uL (4.8-10.8)
[2023-09-28 06:19] LABS: HEMATOCRIT 20.6 % (34.2-44.1); PLATELET COUNT 8 x10e3/uL (140-360)
[2023-09-28 08:14] LABS: RBC MORPHOLOGY COMMENT ABNORMAL
[2023-09-28 08:15] LABS: ANISOCYTOSIS MODERATE
[2023-09-28 08:16] LABS: HYPOCHROMASIA MODERATE; SCHISTOCYTES MODERATE
[2023-09-28 08:17] LABS: PLATELET ESTIMATE MARKEDLY DECREASED; PLATELET MORPHOLOGY COMMENT NORMAL; POLYCHROMASIA FEW
[2023-09-28] MEDS: CYANOCOBALAMIN INJ 1,000 MCG/ML VIAL IM SCH (08:24)
[2023-09-28] MEDS: INSULIN LISPRO 100 UNIT/1 ML 3ML VIAL SQ SCH ×4 (08:26→21:09)
[2023-09-28] MEDS: SODIUM CHLORIDE 0.9% 1000ML 1,000 ML IV SCH ×3 (09:38→17:39)
[2023-09-28] MEDS ORDERED: SODIUM CHLORIDE 0.9% 250ML 250 ML ONE ×2 (11:42→13:39)
[2023-09-28] MEDS ORDERED: IMMU GLOBULIN,GAMMA (IGG) 200 ML IV SCH (12:00)
[2023-09-28] MEDS ORDERED: SODIUM CHLORIDE FLUSH 10 ML SYR ONE (12:19)
[2023-09-28] MEDS ORDERED: DEXTROSE 50% SYRINGE 50 ML IV ONE (12:19)
[2023-09-28] MEDS ORDERED: ETOMIDATE 2 MG/ML 10 ML INJ IV ONE (12:21)
[2023-09-28] MEDS ORDERED: SUCCINYLCHOLINE CHLORIDE 20 MG/ML 10ML VIAL ONE (12:21)
[2023-09-28] MEDS: IRON SUCROSE 100 MG in SODIUM CHLORIDE 0.9% 100 ML IV SCH ×2 (12:26→13:30)
[2023-09-28] MEDS ORDERED: METOPROLOL TARTRATE INJ 1 MG/ML VIAL IV PRN (16:00)
[2023-09-28] MEDS ORDERED: METOPROLOL TARTRATE INJ 1 MG/ML VIAL IV ONE (16:00)
[2023-09-28] MEDS ORDERED: INSULIN LISPRO 100 UNIT/1 ML 3ML VIAL SQ SCH (16:30)
[2023-09-28] MEDS ORDERED: IOPAMIDOL 370 MG/ML 100 ML INFUS..BTL INJ ONE (20:00)
[2023-09-28] MEDS ORDERED: LORAZEPAM INJ 2 MG/ML VIAL IV ONE (20:45)
[2023-09-28] MEDS ORDERED: LORAZEPAM INJ 2 MG/ML VIAL ONE ×2 (20:47→22:17)
[2023-09-28] MEDS ORDERED: INSULIN GLARGINE 100 UNITS/ML VIAL SQ SCH (21:00)
[2023-09-28 21:11] LABS: BASOPHILS # (AUTO) 0.1 (0.0-0.1); BASOPHILS % 0.3 % (0.0-1.0); EOSINOPHILS % 0.2 % (0.0-6.0); HEMOGLOBIN 7.3 g/dL (12.0-16.0); LYMPHOCYTES # (AUTO) 3.5 (1.0-3.2); LYMPHOCYTES % 21.8 % (18.0-39.1); MEAN CORPUSCULAR HEMOGLOBIN 27.5 pg (28-32); MEAN CORPUSCULAR HGB CONC 33.6 g/dL (31-35); MEAN CORPUSCULAR VOLUME 81.9 fL (81-99); MONOCYTES # (AUTO) 0.5 (0.2-0.8); MONOCYTES % 3.3 % (4.4-11.3); RED BLOOD COUNT 2.65 x10e6/uL (3.6-5.1); RED CELL DISTRIBUTION WIDTH 18.6 % (11.7-14.4); WHITE BLOOD COUNT 16.17 x10e3/uL (4.8-10.8)
[2023-09-28 21:13] LABS: HEMATOCRIT 21.7 % (34.2-44.1); PLATELET COUNT 8 x10e3/uL (140-360)
[2023-09-28 21:30] LABS: ALBUMIN 2.2 g/dL (3.5-5.0); BILIRUBIN,DIRECT 1.1 mg/dL (0.0-0.5); BILIRUBIN,TOTAL 3.1 mg/dL (0.2-1.2); TOTAL PROTEIN 6.2 g/dL (6.5-8.1)
[2023-09-28] MEDS ORDERED: LORAZEPAM INJ 2 MG/ML VIAL IV PRN (21:30)
[2023-09-28] MEDS ORDERED: DEXMEDETOMIDINE 400MCG/NS100ML 100 ML IV PRN (21:30)
[2023-09-28 21:32] LABS: ANION GAP 18.1 mmol/L (8-16); CALCIUM 8.3 mg/dL (8.4-10.2); CREATININE, SERUM 1.06 mg/dL (0.57-1.11); POTASSIUM 4.1 mmol/L (3.5-5.1)
[2023-09-28 21:39] LABS: TROPONIN I 0.501 ng/mL (0-0.300)
[2023-09-28] MEDS ORDERED: DEXTROSE 50% SYRINGE 50 ML IV PRN (21:45)
[2023-09-28] MEDS ORDERED: SODIUM CHLORIDE 0.9% 1000ML 1,000 ML IV ONE (22:00)
[2023-09-29] VITALS (81 sets, daily range): BP systolic 78–134; BP diastolic 53–110; PULSE 73–144; RESP 15–40; TEMP 98–99.3; O2SAT 98–100
[2023-09-29] MEDS ORDERED: SODIUM CHLORIDE 0.9% 100 ML ONE (01:27)
[2023-09-29] MEDS ORDERED: INSULIN REGULAR, HUMAN 100 UNIT/1 ML ONE (01:27)
[2023-09-29 05:11] LABS: BASOPHILS % 0.1 % (0.0-1.0); EOSINOPHILS % 0.1 % (0.0-6.0); LYMPHOCYTES # (AUTO) 2.1 (1.0-3.2); LYMPHOCYTES % 14.2 % (18.0-39.1); MEAN CORPUSCULAR HGB CONC 33.7 g/dL (31-35); MEAN CORPUSCULAR VOLUME 79.9 fL (81-99); MONOCYTES # (AUTO) 0.7 (0.2-0.8); MONOCYTES % 4.9 % (4.4-11.3); NEUTROPHILS # (AUTO) 10.8 (2.1-6.9); NEUTROPHILS % 73.5 % (38.7-80.0); RED BLOOD COUNT 2.04 x10e6/uL (3.6-5.1); RED CELL DISTRIBUTION WIDTH 18.6 % (11.7-14.4); WHITE BLOOD COUNT 14.75 x10e3/uL (4.8-10.8)
[2023-09-29 05:22] LABS: HEMATOCRIT 16.3 % (34.2-44.1); HEMOGLOBIN 5.5 g/dL (12.0-16.0); PLATELET COUNT 26 x10e3/uL (140-360)
[2023-09-29] MEDS: METOCLOPRAMIDE HCL 10 MG/2ML VIAL IV SCH ×4 (05:45→17:47)
[2023-09-29] MEDS ORDERED: SODIUM CHLORIDE 0.9% 250ML 250 ML IV PRN (05:45)
[2023-09-29] MEDS: CYANOCOBALAMIN INJ 1,000 MCG/ML VIAL IM SCH (08:21)
[2023-09-29 09:04] LABS: ABG HCO3 21 mmol/L (22-26); ABG PCO2 36 mmHg (35-45); ABG PH 7.38 (7.35-7.45); ABG PO2 169 mmHg (80-105); ABG TCO2 22
[2023-09-29 09:20] LABS: ALBUMIN/GLOBULIN RATIO 0.6 (0.8-2.0); ANION GAP 10.9 mmol/L (8-16); BILIRUBIN,TOTAL 2.8 mg/dL (0.2-1.2); CALCIUM 7.4 mg/dL (8.4-10.2); CREATININE, SERUM 1.06 mg/dL (0.57-1.11); POTASSIUM 3.9 mmol/L (3.5-5.1); TOTAL PROTEIN 5.3 g/dL (6.5-8.1)
[2023-09-29] MEDS: IRON SUCROSE 100 MG in SODIUM CHLORIDE 0.9% 100 ML IV SCH (11:00)
[2023-09-29] MEDS: FUROSEMIDE INJ 10 MG/ML 2 ML VIAL IV PRN ×2 (11:06→13:38)
[2023-09-29 12:36] LABS: LYMPHOCYTES % (MANUAL) 11 % (19-48); METAMYELOCYTES % (MANUAL) 3 % (0-0); MONOCYTES % (MANUAL) 3 % (3.4-9.0); MYELOCYTES % (MANUAL) 5 % (0-0); NEUTROPHILS % (MANUAL) 78 % (40-74); NUCLEATED RED BLOOD CELLS 3
[2023-09-29 12:37] LABS: ANISOCYTOSIS MODERATE; MICROCYTOSIS MODE; PLATELET ESTIMATE MARKEDLY DECREASED; PLATELET MORPHOLOGY COMMENT NORMAL; RBC MORPHOLOGY COMMENT ABNORMAL
[2023-09-29 12:38] LABS: HYPOCHROMASIA MARKED; SCHISTOCYTES MODERATE; TEAR DROP CELLS FEW
[2023-09-29 16:09] LABS: BASOPHILS # (AUTO) 0.1 (0.0-0.1); BASOPHILS % 0.4 % (0.0-1.0); EOSINOPHILS % 0.1 % (0.0-6.0); HEMOGLOBIN 7.3 g/dL (12.0-16.0); LYMPHOCYTES # (AUTO) 2.2 (1.0-3.2); MEAN CORPUSCULAR HEMOGLOBIN 27.9 pg (28-32); MEAN CORPUSCULAR HGB CONC 34.3 g/dL (31-35); MEAN CORPUSCULAR VOLUME 81.3 fL (81-99); MONOCYTES # (AUTO) 0.8 (0.2-0.8); MONOCYTES % 4.5 % (4.4-11.3); NEUTROPHILS # (AUTO) 12.5 (2.1-6.9); NEUTROPHILS % 73.9 % (38.7-80.0); RED BLOOD COUNT 2.62 x10e6/uL (3.6-5.1); RED CELL DISTRIBUTION WIDTH 17.6 % (11.7-14.4); WHITE BLOOD COUNT 16.85 x10e3/uL (4.8-10.8)
[2023-09-29 16:14] LABS: HEMATOCRIT 21.3 % (34.2-44.1); PLATELET COUNT 13 x10e3/uL (140-360)
[2023-09-29 16:15] LABS: INR 1.23; PROTHROMBIN TIME 15.8 seconds (11.9-14.5)
[2023-09-29] MEDS: IMMU GLOBULIN,GAMMA (IGG) 200 ML IV SCH (17:15)
[2023-09-30] VITALS (44 sets, daily range): BP systolic 111–139; BP diastolic 67–93; PULSE 65–89; RESP 15–29; TEMP 98.3–99.4; O2SAT 94–100
[2023-09-30] MEDS ORDERED: INSULIN REGULAR, HUMAN 3ML VL 100 UNIT in SODIUM CHLORIDE 0.45% 100 ML 100 ML IV SCH ×2 (00:30)
[2023-09-30] MEDS: FUROSEMIDE INJ 10 MG/ML 2 ML VIAL IV PRN (00:56)
[2023-09-30] MEDS: METOCLOPRAMIDE HCL 10 MG/2ML VIAL IV SCH ×4 (00:56→17:34)
[2023-09-30 06:25] LABS: BASOPHILS % 0.3 % (0.0-1.0); HEMATOCRIT 22.9 % (34.2-44.1); LYMPHOCYTES # (AUTO) 1.3 (1.0-3.2); LYMPHOCYTES % 9.1 % (18.0-39.1); MEAN CORPUSCULAR HEMOGLOBIN 27.9 pg (28-32); MEAN CORPUSCULAR HGB CONC 34.5 g/dL (31-35); MEAN CORPUSCULAR VOLUME 80.9 fL (81-99); MONOCYTES # (AUTO) 1.1 (0.2-0.8); MONOCYTES % 7.5 % (4.4-11.3); NEUTROPHILS % 76.2 % (38.7-80.0); RED BLOOD COUNT 2.83 x10e6/uL (3.6-5.1); RED CELL DISTRIBUTION WIDTH 17.5 % (11.7-14.4); WHITE BLOOD COUNT 14.39 x10e3/uL (4.8-10.8)
[2023-09-30 06:30] LABS: HEMOGLOBIN 7.9 g/dL (12.0-16.0); PLATELET COUNT 30 x10e3/uL (140-360)
[2023-09-30 07:07] LABS: ALBUMIN 2.3 g/dL (3.5-5.0); ALBUMIN/GLOBULIN RATIO 0.5 (0.8-2.0); ANION GAP 15.8 mmol/L (8-16); CREATININE, SERUM 1.25 mg/dL (0.57-1.11); TOTAL PROTEIN 6.5 g/dL (6.5-8.1)
[2023-09-30 07:10] LABS: POTASSIUM 2.8 mmol/L (3.5-5.1)
[2023-09-30] MEDS: POTASSIUM CHLORIDE 20MEQ/100ML 100 ML IV SCH ×4 (08:44→20:54)
[2023-09-30] MEDS: CYANOCOBALAMIN INJ 1,000 MCG/ML VIAL IM SCH (08:44)
[2023-09-30] MEDS: SODIUM CHLORIDE 0.45% 1,000 ML IV SCH ×2 (08:45→20:54)
[2023-09-30] MEDS: EPOETIN ALFA-EPBX 10,000 UNIT/ML VIAL SC SCH (11:58)
[2023-09-30] MEDS: IRON SUCROSE 100 MG in SODIUM CHLORIDE 0.9% 100 ML IV SCH (11:59)
[2023-09-30] MEDS: IMMU GLOBULIN,GAMMA (IGG) 200 ML IV SCH (14:50)
[2023-09-30] MEDS ORDERED: INSULIN REGULAR, HUMAN 3ML VL 100 UNIT in SODIUM CHLORIDE 0.9% 100 ML IV SCH ×2 (17:00)
[2023-10-01] VITALS (35 sets, daily range): BP systolic 106–147; BP diastolic 62–84; PULSE 47–91; RESP 12–24; TEMP 97.8–98.4; O2SAT 97–100
[2023-10-01] MEDS: METOCLOPRAMIDE HCL 10 MG/2ML VIAL IV SCH ×5 (00:12→23:30)
[2023-10-01 07:05] LABS: BASOPHILS % 0.2 % (0.0-1.0); LYMPHOCYTES # (AUTO) 1.3 (1.0-3.2); LYMPHOCYTES % 11.8 % (18.0-39.1); MEAN CORPUSCULAR HEMOGLOBIN 27.8 pg (28-32); MEAN CORPUSCULAR HGB CONC 33.5 g/dL (31-35); MEAN CORPUSCULAR VOLUME 83.1 fL (81-99); MONOCYTES # (AUTO) 0.9 (0.2-0.8); MONOCYTES % 8.4 % (4.4-11.3); NEUTROPHILS # (AUTO) 8.2 (2.1-6.9); NEUTROPHILS % 73.7 % (38.7-80.0); RED BLOOD COUNT 2.37 x10e6/uL (3.6-5.1); WHITE BLOOD COUNT 11.07 x10e3/uL (4.8-10.8)
[2023-10-01 07:24] LABS: ALBUMIN 2.1 g/dL (3.5-5.0); ALBUMIN/GLOBULIN RATIO 0.5 (0.8-2.0); ANION GAP 11.7 mmol/L (8-16); BILIRUBIN,TOTAL 2.4 mg/dL (0.2-1.2); CALCIUM 7.6 mg/dL (8.4-10.2); CREATININE, SERUM 0.97 mg/dL (0.57-1.11); POTASSIUM 3.7 mmol/L (3.5-5.1); TOTAL PROTEIN 6.2 g/dL (6.5-8.1)
[2023-10-01 07:55] LABS: HEMATOCRIT 19.7 % (34.2-44.1); HEMOGLOBIN 6.6 g/dL (12.0-16.0); PLATELET COUNT 25 x10e3/uL (140-360)
[2023-10-01] MEDS ORDERED: SODIUM CHLORIDE 0.9% 250ML 250 ML IV ONE ×2 (08:00→10:30)
[2023-10-01] MEDS: CYANOCOBALAMIN INJ 1,000 MCG/ML VIAL IM SCH (08:29)
[2023-10-01] MEDS ORDERED: POTASSIUM CHLORIDE 20 MEQ in DEXTROSE 5% 1,000 ML IV SCH (09:30)
[2023-10-01] MEDS: POTASSIUM CHLORIDE IN D5W 1,000 ML IV SCH ×2 (10:30→19:35)
[2023-10-01] MEDS ORDERED: DEXTROSE 50% SYRINGE 50 ML IV PRN (13:30)
[2023-10-01] MEDS: INSULIN LISPRO 100 UNIT/1 ML 3ML VIAL SQ SCH ×2 (17:00→21:18)
[2023-10-01 19:22] LABS: BASOPHILS % 0.2 % (0.0-1.0); HEMATOCRIT 26.4 % (34.2-44.1); HEMOGLOBIN 8.7 g/dL (12.0-16.0); LYMPHOCYTES # (AUTO) 0.9 (1.0-3.2); LYMPHOCYTES % 10.8 % (18.0-39.1); MEAN CORPUSCULAR VOLUME 84.9 fL (81-99); MONOCYTES # (AUTO) 0.4 (0.2-0.8); MONOCYTES % 4.5 % (4.4-11.3); NEUTROPHILS # (AUTO) 6.7 (2.1-6.9); NEUTROPHILS % 77.8 % (38.7-80.0); RED BLOOD COUNT 3.11 x10e6/uL (3.6-5.1); RED CELL DISTRIBUTION WIDTH 16.9 % (11.7-14.4)
[2023-10-01 19:31] LABS: PLATELET COUNT 22 x10e3/uL (140-360)
[2023-10-01 20:53] LABS: LYMPHOCYTES % (MANUAL) 15 % (19-48); MONOCYTES % (MANUAL) 8 % (3.4-9.0); NEUTROPHILS % (MANUAL) 77 % (40-74); NUCLEATED RED BLOOD CELLS 4; PLATELET ESTIMATE MARKEDLY DECREASED; PLATELET MORPHOLOGY COMMENT NORMAL; RBC MORPHOLOGY COMMENT NORMAL
[2023-10-01] MEDS ORDERED: INSULIN GLARGINE 100 UNITS/ML VIAL SQ SCH (21:00)
[2023-10-02] VITALS (17 sets, daily range): BP systolic 111–156; BP diastolic 66–90; PULSE 44–61; RESP 11–24; TEMP 97.9–98.6; O2SAT 99–100
[2023-10-02] MEDS: METOCLOPRAMIDE HCL 10 MG/2ML VIAL IV SCH ×4 (05:16→23:47)
[2023-10-02] MEDS: POTASSIUM CHLORIDE IN D5W 1,000 ML IV SCH (05:17)
[2023-10-02] MEDS: INSULIN LISPRO 100 UNIT/1 ML 3ML VIAL SQ SCH ×4 (07:38→21:37)
[2023-10-02] MEDS: CYANOCOBALAMIN INJ 1,000 MCG/ML VIAL IM SCH (08:51)
[2023-10-02 09:16] LABS: BASOPHILS % 0.3 % (0.0-1.0); HEMATOCRIT 28.3 % (34.2-44.1); HEMOGLOBIN 9.4 g/dL (12.0-16.0); LYMPHOCYTES # (AUTO) 1.5 (1.0-3.2); LYMPHOCYTES % 13.9 % (18.0-39.1); MEAN CORPUSCULAR HEMOGLOBIN 28.4 pg (28-32); MEAN CORPUSCULAR HGB CONC 33.2 g/dL (31-35); MEAN CORPUSCULAR VOLUME 85.5 fL (81-99); MONOCYTES # (AUTO) 0.7 (0.2-0.8); MONOCYTES % 6.8 % (4.4-11.3); NEUTROPHILS # (AUTO) 7.9 (2.1-6.9); NEUTROPHILS % 72.4 % (38.7-80.0); RED BLOOD COUNT 3.31 x10e6/uL (3.6-5.1); RED CELL DISTRIBUTION WIDTH 17.3 % (11.7-14.4)
[2023-10-02 09:21] LABS: PLATELET COUNT 27 x10e3/uL (140-360)
[2023-10-02 09:34] LABS: ALBUMIN 2.2 g/dL (3.5-5.0); ALBUMIN/GLOBULIN RATIO 0.6 (0.8-2.0); ANION GAP 13.4 mmol/L (8-16); BILIRUBIN,TOTAL 2.3 mg/dL (0.2-1.2); CALCIUM 7.6 mg/dL (8.4-10.2); CREATININE, SERUM 1.01 mg/dL (0.57-1.11); POTASSIUM 3.4 mmol/L (3.5-5.1); TOTAL PROTEIN 6.1 g/dL (6.5-8.1)
[2023-10-02] MEDS: SODIUM CHLORIDE 0.45% 1,000 ML IV SCH ×2 (09:45→21:40)
[2023-10-02] MEDS: EPOETIN ALFA-EPBX 10,000 UNIT/ML VIAL SC SCH (09:45)
[2023-10-02] MEDS ORDERED: PREDNISONE 20 MG TAB PO SCH (11:00)
[2023-10-02] MEDS: DEXAMETHASONE SOD PHOS 10 MG/1 ML VIAL IV SCH (13:09)
[2023-10-02] MEDS ORDERED: INSULIN GLARGINE 100 UNITS/ML VIAL SQ SCH ×2 (21:00)
[2023-10-03] VITALS (10 sets, daily range): BP systolic 152–172; BP diastolic 64–91; PULSE 49–80; RESP 16–20; TEMP 96.4–97.9; O2SAT 97–100
[2023-10-03] MEDS: SODIUM CHLORIDE 0.45% 1,000 ML IV SCH (05:15)
[2023-10-03] MEDS: METOCLOPRAMIDE HCL 10 MG/2ML VIAL IV SCH ×3 (06:36→18:47)
[2023-10-03 07:16] LABS: BASOPHILS # (AUTO) 0.1 (0.0-0.1); BASOPHILS % 0.4 % (0.0-1.0); EOSINOPHILS % 0.1 % (0.0-6.0); HEMATOCRIT 29.6 % (34.2-44.1); HEMOGLOBIN 9.8 g/dL (12.0-16.0); LYMPHOCYTES # (AUTO) 1.7 (1.0-3.2); LYMPHOCYTES % 13.8 % (18.0-39.1); MEAN CORPUSCULAR HEMOGLOBIN 27.8 pg (28-32); MEAN CORPUSCULAR HGB CONC 33.1 g/dL (31-35); MEAN CORPUSCULAR VOLUME 83.9 fL (81-99); MONOCYTES # (AUTO) 0.7 (0.2-0.8); MONOCYTES % 5.9 % (4.4-11.3); NEUTROPHILS # (AUTO) 8.6 (2.1-6.9); NEUTROPHILS % 72.4 % (38.7-80.0); RED BLOOD COUNT 3.53 x10e6/uL (3.6-5.1); WHITE BLOOD COUNT 11.95 x10e3/uL (4.8-10.8)
[2023-10-03 07:21] LABS: ALBUMIN 2.6 g/dL (3.5-5.0); ALBUMIN/GLOBULIN RATIO 0.7 (0.8-2.0); ANION GAP 13.2 mmol/L (8-16); BILIRUBIN,TOTAL 3.6 mg/dL (0.2-1.2); CREATININE, SERUM 0.9 mg/dL (0.57-1.11); POTASSIUM 3.2 mmol/L (3.5-5.1); TOTAL PROTEIN 6.6 g/dL (6.5-8.1)
[2023-10-03 07:27] LABS: PLATELET COUNT 25 x10e3/uL (140-360)
[2023-10-03] MEDS: INSULIN LISPRO 100 UNIT/1 ML 3ML VIAL SQ SCH ×5 (07:30→21:46)
[2023-10-03] MEDS: CYANOCOBALAMIN INJ 1,000 MCG/ML VIAL IM SCH (08:13)
[2023-10-03] MEDS: DEXAMETHASONE SOD PHOS 10 MG/1 ML VIAL IV SCH (08:13)
[2023-10-03] MEDS ORDERED: POTASSIUM CHLORIDE 20 MEQ TAB CR PO STA (08:38)
[2023-10-03] MEDS ORDERED: DEXTROSE 5% 500ML 500 ML IV ONE (08:45)
[2023-10-03] MEDS ORDERED: POTASSIUM CHLORIDE 20MEQ/100ML 100 ML IV ONE (12:15)
[2023-10-03] MEDS: INSULIN GLARGINE 100 UNITS/ML VIAL SQ SCH (21:48)
[2023-10-04] VITALS (9 sets, daily range): BP systolic 154–176; BP diastolic 75–88; PULSE 58–74; RESP 17–19; TEMP 97.6–98.6; O2SAT 96–100
[2023-10-04] MEDS: METOCLOPRAMIDE HCL 10 MG/2ML VIAL IV SCH ×4 (01:23→16:39)
[2023-10-04 06:56] LABS: BASOPHILS % 0.3 % (0.0-1.0); EOSINOPHILS % 0.1 % (0.0-6.0); HEMATOCRIT 27.5 % (34.2-44.1); HEMOGLOBIN 8.8 g/dL (12.0-16.0); LYMPHOCYTES # (AUTO) 1.2 (1.0-3.2); LYMPHOCYTES % 11.3 % (18.0-39.1); MEAN CORPUSCULAR HEMOGLOBIN 27.2 pg (28-32); MEAN CORPUSCULAR VOLUME 85.1 fL (81-99); MONOCYTES # (AUTO) 0.5 (0.2-0.8); MONOCYTES % 4.5 % (4.4-11.3); NEUTROPHILS # (AUTO) 8.2 (2.1-6.9); NEUTROPHILS % 77.7 % (38.7-80.0); PLATELET COUNT 20 x10e3/uL (140-360); RED BLOOD COUNT 3.23 x10e6/uL (3.6-5.1); RED CELL DISTRIBUTION WIDTH 20.4 % (11.7-14.4); WHITE BLOOD COUNT 10.59 x10e3/uL (4.8-10.8)
[2023-10-04 07:21] LABS: ANION GAP 14.9 mmol/L (8-16); CALCIUM 7.8 mg/dL (8.4-10.2); CREATININE, SERUM 0.96 mg/dL (0.57-1.11); MAGNESIUM 1.4 MG/DL (1.3-2.1); PHOSPHORUS 3.6 MG/DL (2.3-4.7)
[2023-10-04 07:23] LABS: POTASSIUM 2.9 mmol/L (3.5-5.1)
[2023-10-04 08:33] LABS: ANISOCYTOSIS MARKED; HYPOCHROMASIA MODERATE; PLATELET ESTIMATE MARKEDLY DECREASED; PLATELET MORPHOLOGY COMMENT NORMAL; POLYCHROMASIA FEW; RBC MORPHOLOGY COMMENT ABNORMAL
[2023-10-04] MEDS: CYANOCOBALAMIN INJ 1,000 MCG/ML VIAL IM SCH (08:50)
[2023-10-04] MEDS: DEXAMETHASONE SOD PHOS 10 MG/1 ML VIAL IV SCH (08:50)
[2023-10-04] MEDS: INSULIN LISPRO 100 UNIT/1 ML 3ML VIAL SQ SCH ×7 (08:51→20:23)
[2023-10-04] MEDS ORDERED: DEXTROSE 5% 500ML 500 ML IV ONE (09:30)
[2023-10-04] MEDS ORDERED: POTASSIUM CHLORIDE 20MEQ/100ML 100 ML IV ONE (09:30)
[2023-10-04] MEDS: HYDRALAZINE HCL 10 MG TAB PO SCH ×2 (09:45→14:00)
[2023-10-04 18:33] LABS: ANION GAP 13.8 mmol/L (8-16); CALCIUM 7.5 mg/dL (8.4-10.2); CREATININE, SERUM 0.92 mg/dL (0.57-1.11)
[2023-10-04 18:34] LABS: POTASSIUM 2.8 mmol/L (3.5-5.1)
[2023-10-04] MEDS: INSULIN GLARGINE 100 UNITS/ML VIAL SQ SCH (20:26)
[2023-10-04] MEDS ORDERED: SODIUM CHLORIDE 0.9% 250ML 250 ML ONE (22:08)
[2023-10-04] MEDS: POTASSIUM CHLORIDE 20MEQ/100ML 100 ML IV SCH ×2 (22:12→23:29)
[2023-10-05] VITALS (9 sets, daily range): BP systolic 129–183; BP diastolic 68–90; PULSE 51–85; RESP 17–21; TEMP 97.1–97.8; O2SAT 99–100
[2023-10-05] MEDS: METOCLOPRAMIDE HCL 10 MG/2ML VIAL IV SCH ×5 (00:05→23:58)
[2023-10-05] MEDS: HYDRALAZINE HCL 10 MG TAB PO SCH (02:43)
[2023-10-05 07:03] LABS: ANION GAP 12.1 mmol/L (8-16); CALCIUM 7.8 mg/dL (8.4-10.2); CREATININE, SERUM 0.84 mg/dL (0.57-1.11); MAGNESIUM 1.5 MG/DL (1.3-2.1); POTASSIUM 3.1 mmol/L (3.5-5.1)
[2023-10-05 07:14] LABS: PHOSPHORUS 3.4 MG/DL (2.3-4.7)
[2023-10-05] MEDS: INSULIN LISPRO 100 UNIT/1 ML 3ML VIAL SQ SCH ×7 (07:30→21:44)
[2023-10-05] MEDS ORDERED: HYDRALAZINE HCL 10 MG TAB PO SCH (09:00)
[2023-10-05] MEDS: DEXAMETHASONE SOD PHOS 10 MG/1 ML VIAL IV SCH (10:08)
[2023-10-05] MEDS: CYANOCOBALAMIN INJ 1,000 MCG/ML VIAL IM SCH (10:08)
[2023-10-05] MEDS: HYDRALAZINE HCL 25 MG TAB PO SCH ×2 (10:09→17:44)
[2023-10-05] MEDS: EPOETIN ALFA-EPBX 10,000 UNIT/ML VIAL SC SCH (10:13)
[2023-10-05 10:57] LABS: BASOPHILS % 0.1 % (0.0-1.0); EOSINOPHILS % 0.2 % (0.0-6.0); HEMATOCRIT 21.3 % (34.2-44.1); LYMPHOCYTES # (AUTO) 1.2 (1.0-3.2); LYMPHOCYTES % 10.9 % (18.0-39.1); MEAN CORPUSCULAR HEMOGLOBIN 27.3 pg (28-32); MONOCYTES # (AUTO) 0.7 (0.2-0.8); MONOCYTES % 6.5 % (4.4-11.3); NEUTROPHILS # (AUTO) 8.5 (2.1-6.9); NEUTROPHILS % 77.2 % (38.7-80.0); RED BLOOD COUNT 2.42 x10e6/uL (3.6-5.1); RED CELL DISTRIBUTION WIDTH 23.1 % (11.7-14.4); WHITE BLOOD COUNT 11.05 x10e3/uL (4.8-10.8)
[2023-10-05 11:01] LABS: HEMOGLOBIN 6.6 g/dL (12.0-16.0); PLATELET COUNT 21 x10e3/uL (140-360)
[2023-10-05 11:28] LABS: ANION GAP 13.1 mmol/L (8-16); CALCIUM 7.8 mg/dL (8.4-10.2); CREATININE, SERUM 0.9 mg/dL (0.57-1.11); MAGNESIUM 1.4 MG/DL (1.3-2.1); PHOSPHORUS 3.4 MG/DL (2.3-4.7); POTASSIUM 3.1 mmol/L (3.5-5.1)
[2023-10-05 12:19] LABS: LYMPHOCYTES % (MANUAL) 9 % (19-48); MONOCYTES % (MANUAL) 4 % (3.4-9.0); NEUTROPHILS % (MANUAL) 83 % (40-74); PROMYELOCYTES % (MANUAL) 4 % (0-0)
[2023-10-05 12:22] LABS: POLYCHROMASIA FEW
[2023-10-05 12:23] LABS: SCHISTOCYTES RARE
[2023-10-05 12:24] LABS: ANISOCYTOSIS MARKED; HYPOCHROMASIA SLIGHT; PLATELET ESTIMATE MARKEDLY DECREASED
[2023-10-05 12:25] LABS: PLATELET MORPHOLOGY COMMENT NORMAL; RBC MORPHOLOGY COMMENT ABNORMAL
[2023-10-05] MEDS ORDERED: POTASSIUM CHLORIDE 20MEQ/100ML 200 ML IV ONE (17:00)
[2023-10-05] MEDS ORDERED: SODIUM CHLORIDE 0.9% 250ML 250 ML IV ONE (17:45)
[2023-10-05] MEDS: INSULIN GLARGINE 100 UNITS/ML VIAL SQ SCH (21:45)
[2023-10-05] MEDS: METOPROLOL TARTRATE 25 MG TAB PO SCH (21:46)
[2023-10-06] VITALS (10 sets, daily range): BP systolic 121–172; BP diastolic 62–91; PULSE 57–82; RESP 18–21; TEMP 97.1–98.3; O2SAT 98–100
[2023-10-06 00:14] LABS: ALBUMIN 2.7 g/dL (3.5-5.0); BILIRUBIN,DIRECT 1.1 mg/dL (0.0-0.5); BILIRUBIN,TOTAL 3.3 mg/dL (0.2-1.2); TOTAL PROTEIN 5.9 g/dL (6.5-8.1)
[2023-10-06 00:24] LABS: VANILLYLMANDELIC ACID URINE 4.5 mg/L (Undefined); VANILLYLMANDELIC ACID24h 7.9 mg/24 hr (0.0-7.5)
[2023-10-06] MEDS ORDERED: FUROSEMIDE INJ 10 MG/ML 2 ML VIAL IV ONE ×2 (00:30→08:45)
[2023-10-06] MEDS ORDERED: SODIUM CHLORIDE 0.9% 250ML 250 ML ONE (02:55)
[2023-10-06] MEDS: HYDRALAZINE HCL 25 MG TAB PO SCH ×3 (03:14→18:00)
[2023-10-06] MEDS: METOCLOPRAMIDE HCL 10 MG/2ML VIAL IV SCH ×3 (05:24→17:34)
[2023-10-06 07:21] LABS: ANION GAP 15.1 mmol/L (8-16); CALCIUM 8.3 mg/dL (8.4-10.2); CREATININE, SERUM 0.94 mg/dL (0.57-1.11); POTASSIUM 3.1 mmol/L (3.5-5.1)
[2023-10-06] MEDS: INSULIN LISPRO 100 UNIT/1 ML 3ML VIAL SQ SCH ×7 (07:30→21:00)
[2023-10-06] MEDS ORDERED: POTASSIUM CHLORIDE 20 MEQ TAB CR PO ONE (08:45)
[2023-10-06] MEDS: CYANOCOBALAMIN INJ 1,000 MCG/ML VIAL IM SCH (09:28)
[2023-10-06] MEDS: METOPROLOL TARTRATE 25 MG TAB PO SCH ×2 (09:29→21:00)
[2023-10-06] MEDS: DEXAMETHASONE SOD PHOS 10 MG/1 ML VIAL IV SCH (09:30)
[2023-10-06] MEDS ORDERED: HYDRALAZINE HCL 20 MG/ML VIAL IV PRN (14:15)
[2023-10-06] MEDS ORDERED: HYDRALAZINE HCL 20 MG/ML VIAL IV ONE (14:30)
[2023-10-06] MEDS: INSULIN GLARGINE 100 UNITS/ML VIAL SQ SCH (21:00)
[2023-10-07] VITALS (10 sets, daily range): BP systolic 134–184; BP diastolic 67–78; PULSE 56–81; RESP 18–19; TEMP 97–98; O2SAT 96–100
[2023-10-07] MEDS: HYDRALAZINE HCL 25 MG TAB PO SCH ×3 (01:41→17:29)
[2023-10-07] MEDS: METOCLOPRAMIDE HCL 10 MG/2ML VIAL IV SCH ×4 (01:45→17:28)
[2023-10-07 01:46] LABS: CALCIUM 7.9 mg/dL (8.4-10.2); CREATININE, SERUM 0.94 mg/dL (0.57-1.11)
[2023-10-07 02:00] LABS: BASOPHILS % 0.3 % (0.0-1.0); EOSINOPHILS % 0.1 % (0.0-6.0); HEMATOCRIT 31.3 % (34.2-44.1); HEMOGLOBIN 9.9 g/dL (12.0-16.0); LYMPHOCYTES # (AUTO) 1.7 (1.0-3.2); LYMPHOCYTES % 14.4 % (18.0-39.1); MEAN CORPUSCULAR HEMOGLOBIN 28.4 pg (28-32); MEAN CORPUSCULAR HGB CONC 31.6 g/dL (31-35); MEAN CORPUSCULAR VOLUME 89.7 fL (81-99); MONOCYTES # (AUTO) 0.8 (0.2-0.8); MONOCYTES % 7.1 % (4.4-11.3); NEUTROPHILS # (AUTO) 8.5 (2.1-6.9); NEUTROPHILS % 73.8 % (38.7-80.0); RED BLOOD COUNT 3.49 x10e6/uL (3.6-5.1); RED CELL DISTRIBUTION WIDTH 20.8 % (11.7-14.4); WHITE BLOOD COUNT 11.46 x10e3/uL (4.8-10.8)
[2023-10-07 02:07] LABS: PLATELET COUNT 45 x10e3/uL (140-360)
[2023-10-07] MEDS: INSULIN LISPRO 100 UNIT/1 ML 3ML VIAL SQ SCH ×7 (07:30→22:27)
[2023-10-07 08:12] LABS: ALBUMIN 3.1 g/dL (3.5-5.0); ALBUMIN/GLOBULIN RATIO 0.9 (0.8-2.0); ANION GAP 18.8 mmol/L (8-16); BILIRUBIN,TOTAL 4.7 mg/dL (0.2-1.2); CALCIUM 8.2 mg/dL (8.4-10.2); TOTAL PROTEIN 6.4 g/dL (6.5-8.1)
[2023-10-07 08:14] LABS: POTASSIUM 2.8 mmol/L (3.5-5.1)
[2023-10-07] MEDS: DEXAMETHASONE SOD PHOS 10 MG/1 ML VIAL IV SCH (09:35)
[2023-10-07] MEDS: METOPROLOL TARTRATE 25 MG TAB PO SCH ×2 (09:35→22:17)
[2023-10-07] MEDS: CYANOCOBALAMIN INJ 1,000 MCG/ML VIAL IM SCH (09:35)
[2023-10-07] MEDS ORDERED: POTASSIUM CHLORIDE 20MEQ/100ML 100 ML IV ONE (09:45)
[2023-10-07] MEDS ORDERED: POTASSIUM CHLORIDE 20 MEQ TAB CR PO ONE (09:45)
[2023-10-07] MEDS: INSULIN GLARGINE 100 UNITS/ML VIAL SQ SCH (22:26)
== END 2023-10-07 23:16 | disposition short-term general hospital (02) | DRG 808 ==
LOC: ER 16:49 → ERHOLD 18:17 → MED/SURG3 20:47 → OBSVTOIN 09-27 13:00 → ICU 09-28 22:30 → MED/SURG3 10-02 13:36
PROVIDERS: ADMIT Internal Medicine; ATTEND Internal Medicine
PROC: 5A1935Z Respiratory Ventilation, Less than 24 Consecutive Hours (ICD-10-PCS; principal; 2023-09-28)
PROC: 0BH17EZ Insertion of Endotracheal Airway into Trachea, Via Natural or Artificial Opening (ICD-10-PCS; 2023-09-28)
PROC: 30243R1 Transfusion of Nonautologous Platelets into Central Vein, Percutaneous Approach (ICD-10-PCS; 2023-09-28)
PROC: 30243N1 Transfusion of Nonautologous Red Blood Cells into Central Vein, Percutaneous Approach (ICD-10-PCS; 2023-09-28)
PROC: 4A043R1 Measurement of Venous Saturation, Peripheral, Percutaneous Approach (ICD-10-PCS; 2023-09-28)
PROC: 02HV33Z Insertion of Infusion Device into Superior Vena Cava, Percutaneous Approach (ICD-10-PCS; 2023-09-29)
PROC: B548ZZA Ultrasonography of Superior Vena Cava, Guidance (ICD-10-PCS; 2023-09-29)
PROC: 4A033R1 Measurement of Arterial Saturation, Peripheral, Percutaneous Approach (ICD-10-PCS; 2023-09-29)
DX: D59.4 Other nonautoimmune hemolytic anemias (principal); E11.10 Type 2 diabetes mellitus with ketoacidosis without coma; G93.41 Metabolic encephalopathy; J96.01 Acute respiratory failure with hypoxia; N17.0 Acute kidney failure with tubular necrosis; J69.0 Pneumonitis due to inhalation of food and vomit; D61.818 Other pancytopenia; R47.01 Aphasia; E87.0 Hyperosmolality and hypernatremia; D69.59 Other secondary thrombocytopenia; I10 Essential (primary) hypertension; E78.5 Hyperlipidemia, unspecified; K64.8 Other hemorrhoids; T45.1X5A Adverse effect of antineoplastic and immunosuppressive drugs, initial encounter; Y92.89 Other specified places as the place of occurrence of the external cause; I48.0 Paroxysmal atrial fibrillation; K21.9 Gastro-esophageal reflux disease without esophagitis; R53.1 Weakness; E86.0 Dehydration; R13.12 Dysphagia, oropharyngeal phase; E11.40 Type 2 diabetes mellitus with diabetic neuropathy, unspecified; E87.6 Hypokalemia; Z20.822 Contact with and (suspected) exposure to COVID-19; Z79.01 Long term (current) use of anticoagulants; Z79.84 Long term (current) use of oral hypoglycemic drugs; Z79.899 Other long term (current) drug therapy
CPT/HCPCS: 31500; 36415; 36569; 36600; 70450; 70496; 70498; 70551; 71045; 74018; 74177; 74230; 76705; 78278; 80048; 80053; 80061; 80076; 81001; 82140; 82530; 82550; 82607; 82728; 82746; 82805; 82948; 83010; 83036; 83519; 83540; 83605; 83615; 83690; 83735; 83880; 84100; 84132; 84295; 84439; 84443; 84466; 84484; 84585; 85014; 85018; 85025; 85045; 85379; 85610; 85730; 86255; 86850; 86880; 86886; 86900; 86920; 87040; 87071; 87205; 92950; 93005; 94002; 94003; 94799; 95812; 99284; A9512; G0378; J0330; J1100; J1561; J1644; J1756; J1940; J2060; J2405; J2543; J2765; J3420; J3480; J7030; J7050; J7060; J7070; J7799; P9016; P9034; Q9967; U0002